=== PATIENT | male | born 1950 | race Caucasian/White ===

== ENCOUNTER 2020-11-07 06:43 | Day surgery (SDC) | payer MEDICARE, OTHER ==
[~2020-11-07 06:43] MED LIST: Famotidine 20 MG/2 ML SDV IVPUSH SCH; Ropivacaine 49.25 ML, Ketorolac 30 MG, EPINEPHrine 0.5 MG, cloNIDine 80 MCG in Sodium C... INJECT SCH; Scopolamine 1.5 MG Transdermal Patch TRDERM SCH
[2020-11-07] MEDS: Lactated Ringers 1,000 ML IV SCH ×2 (07:20→16:44)
[2020-11-07] MEDS ORDERED: Ondansetron 4 MG/2 ML SDV ONE (07:23)
[2020-11-07] MEDS ORDERED: Propofol 200 MG/20 ML SDV ONE ×3 (07:23→13:44)
[2020-11-07] MEDS ORDERED: Midazolam 1 MG/ML 2 ML SDV ONE (07:24)
[2020-11-07] MEDS ORDERED: fentaNYL 100 MCG/2 ML SDV ONE (07:24)
--- NOTE | 2020-11-07 07:36 | PCM.PREANE ---
Preanesthetic Assessment - Anesthesia/Transfusion/Family Hx Anesthesia History: Prior Anesthesia Without Reaction Other Type of Anesthesia Reaction Comment: Denies any known problem in past Family History of Anesthesia Reaction: No Transfusion History: No Prior Transfusion(s) - Review of Systems General: No Symptoms Pulmonary: No Symptoms Cardiovascular: No Symptoms Gastrointestinal: No Symptoms Neurological: No Symptoms Other: Reports: None - Physical Assessment NPO Status Date: 11/06/20 Height: 5 ft 10 in Weight: 95.254 kg ASA Class: 2 Mental Status: Alert & Oriented x3 Airway Class: Mallampati = 2 Dentition: Reports: Normal Dentition ROM/Head Extension: Full Lungs: Clear to Auscultation, Normal Respiratory Effort Cardiovascular: Regular Rate, Regular Rhythm - Lab Values: Laboratory Last Values POC Glucose 137 mg/dL (60-110) H 11/07/20 07:24 - Allergies Allergies/Adverse Reactions: Allergies Allergy/AdvReac Type Severity Reaction Status Date / Time cephalexin monohydrate Allergy Rash Verified 11/01/20 07:40 [From Keflex] - Blood Blood Available: No - Anesthesia Plan Pre-Op Medication Ordered: None - Acknowledgements Anesthesia Type Planned: Spinal Pt an Appropriate Candidate for the Planned Anesthesia: Yes Alternatives and Risks of Anesthesia Discussed w Pt/Guardian: Yes Pt/Guardian Understands and Agrees with Anesthesia Plan: Yes Additional Comments: PMH: glaucoma, RA- off prednisone x 2 years, htn- on lisinipril, DM2 on metformin- am [id number] PLAN: spinal with iv sedation PreAnesthesia Questionnaire HEENT History: Reports: Glaucoma Other HEENT History: wears glasses Cardiovascular History: Reports: High Cholesterol, Hypertension Respiratory History: Reports: None Gastrointestinal History: Reports: Hemorrhoids Genitourinary History: Reports: None Musculoskeletal History: Reports: RA Neurological History: Reports: None Psychiatric History: Reports: None Endocrine/Metabolic History: Reports: Diabetes, Type II, Obesity/BMI 30+ Hematologic History: Reports: None Immunologic History: Reports: None Oncologic (Cancer) History: Reports: Basal Cell Carcinoma Other Oncologic History: Areas frozen off with nitrogen Dermatologic History: Reports: None - Infectious Disease History Infectious Disease History: Reports: None - Past Surgical History Head Surgeries/Procedures: Reports: None HEENT Surgical History: Reports: None Cardiovascular Surgical History: Reports: None Respiratory Surgical History: Reports: None GI Surgical History: Reports: Colonoscopy, Other (See Below) Other GI Surgeries/Procedures: Hemorrhoidectomy Male Surgical History: Reports: None Endocrine Surgical History: Reports: None Neurological Surgical History: Reports: None Musculoskeletal Surgical History: Reports: Carpal Tunnel Other Musculoskeletal Surgeries/Procedures:: hx kenny CTR Dermatological Surgical History: Reports: None - SUBSTANCE USE Tobacco Use Status *Q: Never Tobacco User Recreational Drug Use History: No - HOME MEDS Home Medications: Home Meds Fish Oil/[place]-3 Fatty Acids [Fish Oil 1,000 MG] 1,000 mg PO BID 12/30/15 [History] Lisinopril 20 tab PO DAILY 12/30/15 [History] atorvaSTATin Calcium [Atorvastatin Calcium] 20 mg PO DAILY 12/30/15 [History] metFORMIN [Glucophage XR] 500 mg PO BEDTIME 12/30/15 [History] Acetaminophen [Tylenol Arthritis] 1 tab PO ASDIRECTED PRN 11/01/20 [History] Brimonidine Tartrate [Brimonidine Tartrate 0.2% Ophth Soln] 1 drop EYELF BID 11/01/20 [History] Ca/D3/Mag Ox/Zinc/Paper Core Machine Operator/Rohan/Bor [Calcium 600-D3 Plus Caplet] 1 tab PO DAILY 11/01/20 [History] Ibuprofen 1 tab PO ASDIRECTED PRN 11/01/20 [History] Latanoprost/Pf [Latanoprost 0.005% Eye Drop] 1 drop EYEBOTH BEDTIME 11/01/20 [History] Multivitamin 1 tab PO DAILY 11/01/20 [History] Naproxen Sodium 1 tab PO ASDIRECTED PRN 11/01/20 [History] Sildenafil [Viagra] 1 tab PO ASDIRECTED PRN 11/01/20 [History] timoloL maleate [Timoptic 0.5% Ophth Soln] 1 drop EYELF DAILY 11/01/20 [History] - CURRENT (IN HOUSE) MEDS Current Meds: Current Medications Famotidine (Pepcid) 40 mg IVPUSH ONARRIVE NONA Tranexamic Acid 1,000 mg/ (Sodium Chloride) 110 mls @ 600 mls/hr IV ASDIRECTED ONE Stop: 11/07/20 08:10 Ropivacaine 49.25 ml/Ketorolac Tromethamine 30 mg/Epinephrine HCl 0.5 mg/Clonidine HCl 80 mcg/ Sodium Chloride 75 mls @ 50 mls/sec INJECT ASDIRECTED NONA Cefazolin Sodium/Dextrose 2 gm (/ Premix) 50 mls @ 100 mls/hr IV ONCALL NONA Lactated Ringer's (Ringers, Lactated) 1,000 mls @ 100 mls/hr IV ASDIRECTED NONA Scopolamine (Transderm-Scop) 1.5 mg TRDERM ONARRIVE NONA Discontinued Medications Fentanyl (Sublimaze) Confirm Administered Dose 100 mcg .ROUTE .STK-MED ONE Stop: 11/07/20 07:25 Lidocaine HCl (Xylocaine-Mpf 1%) Confirm Administered Dose 5 ml .ROUTE .STK-MED ONE Stop: 11/07/20 07:25 Midazolam HCl (Versed 1 Mg/Ml) Confirm Administered Dose 2 mg .ROUTE .STK-MED ONE Stop: 11/07/20 07:25 Ondansetron HCl (Zofran) Confirm Administered Dose 4 mg .ROUTE .STK-MED ONE Stop: 11/07/20 07:24 Propofol (Diprivan 20 Ml) Confirm Administered Dose 600 mg .ROUTE .STK-MED ONE Stop: 11/07/20 07:24
[2020-11-07] MEDS ORDERED: ceFAZolin 2 GM in Premix Bag 1 BAG IV SCH (08:00)
[2020-11-07] MEDS ORDERED: Tranexamic Acid 1,000 MG in Sodium Chloride 0.9% 100 ML IV ONE (08:00)
[2020-11-07] MEDS ORDERED: ePHEDrine 50 MG/ML SDV ONE (08:56)
--- NOTE | 2020-11-07 10:50 | PCM.OPNOTE ---
- General Post-Op/Procedure Note Date of Surgery/Procedure: 11/07/20 Operative Procedure(s): Left total knee replacement using [employer] Legion knee system Findings: Left knee grade 4 medial compartment arthritis on both femur and tibia, grade 4 changes in the lateral facet of the patella grade 3 changes of the trochlear groove Grade 1 changes lateral compartment femoral and tibial articular cartilage Pre Op Diagnosis: Left knee grade 4 medial compartment osteoarthritis Post-Op Diagnosis: Left knee grade 4 medial compartment osteoarthritis Anesthesia Technique: Spinal Primary Surgeon: Shon Brownlee Director Of Safety: Cheryl Conley Director Of Safety Was Necessary: Positioning and retraction. Pathology: Bone cuts to pathology for review. EBL in mLs: 10 Complications: None Free Text/Narrative:: Patient is a 70-year-old male with grade 4 left knee medial compartment arthritis. Patient is no longer able to manage his pain and symptoms nonoperatively. We discussed the risks and benefits of surgery. All questions were answered. Patient consented to proceed with surgery. Patient was medically cleared for surgery. Patient was taken to the operating room. After adequate spinal anesthesia, he was placed in a supine position. A tourniquet was placed around the left proximal thigh. The left lower extremity was prepped and draped in usual sterile manner. The leg was elevated and the tourniquet inflated. A longitudinal incision was made centered over the patella. Skin was incised with a scalpel. Subcutaneous tissue was incised letter cautery. Quadriceps tendon split and medial arthrotomy was performed and the patella everted. Soft tissues were excised electrocautery. The distal femoral cut was made with a intramedullary cutting guide. The femur was sized to size 6 and then a constrained cutting guide was used to make the additional cuts. Osteophytes were removed. The trial component fit well. Lug holes were punched. Tibia was cut with an intramedullary cutting guide. The tibial component was sized to a size 6. Trial components showed good stability in flexion extension with a 9 mm insert. Patella was cut with a freehand technique. The patella was sized with 32 mm component which should fit well. The patella tracked well. Trial components were removed. The components were then cemented sequentially for cementing a Shirley [employer] Nephew #6 tibial component with antibiotic cement. Excess cement was removed. The polyethylene was inserted, 9 mm. Femoral cruciate retaining component was then cemented this was a size 6. Excess cement was removed and the knee was brought into extension until the cement hardened. The tibial component was cemented into place and this was a size 32. Excess cement was removed. Once the cement was hardened the knee was reinspected. No excess cement required removal. Periarticular injections were completed while the cement was hardening. The knee and wounds were pulse lavage. The arthrotomy and quadriceps tendon split were repaired with interrupted #1 Vicryl suture. Subcutaneous tissue was closed with interrupted 2-0 Vicryl suture. Skin was closed with a running 3-0 Monocryl suture. Steri-Strips and a sterile dressing were applied and patient was accompanied the cover in stable condition. Pain management: Ibuprofen, acetaminophen, tramadol. Venous thromboembolism prophylaxis: Patient will take aspirin 325 mg enteric- coated tablet once a day for 90 days because he has no personal or family history of venous thromboembolic events. Prophylactic antibiotics for 24 hours. Restrictions: Patient is weightbearing as left lower extremities with walker assistive device as needed. He has full range of motion no restrictions.
[2020-11-07] MEDS ORDERED: traMADol 50 MG Tab PO PRN (10:59)
[2020-11-07] MEDS ORDERED: Sodium Chloride 0.9% 10 ML Syringe FLUSH PRN (10:59)
[2020-11-07] MEDS ORDERED: Bisacodyl 10 MG Supp RECTAL PRN (10:59)
[2020-11-07] MEDS ORDERED: Sodium Chloride 0.9% 2.5 ML Syringe FLUSH PRN (10:59)
[2020-11-07] MEDS ORDERED: diphenhydrAMINE 25 MG Cap PO PRN (10:59)
[2020-11-07] MEDS ORDERED: Ondansetron 4 MG/2 ML SDV IVPUSH PRN (10:59)
[2020-11-07] MEDS ORDERED: Aluminum Hydroxide/Magnesium Hydroxide/Simethicone Susp 30 ML Cup PO PRN (10:59)
[2020-11-07] MEDS ORDERED: Docusate Sodium 100 MG Cap PO PRN (10:59)
[2020-11-07] MEDS ORDERED: Morphine 2 MG/ML SYRINGE IVPUSH PRN (10:59)
--- NOTE | 2020-11-07 11:33 | PCM.POSTAN ---
POST ANESTHESIA ASSESSMENT - MENTAL STATUS Mental Status: Alert, Oriented - VITAL SIGNS Vital Signs: Last Vital Signs Temp 96.9 F 11/07/20 10:29 Pulse 59 L 11/07/20 11:11 Resp 10 L 11/07/20 11:11 BP 123/76 11/07/20 11:11 Pulse Ox 96 11/07/20 11:11 - RESPIRATORY Respiratory Status: Respiratory Rate WNL, Airway Patent, O2 Saturation Stable - CARDIOVASCULAR CV Status: Pulse Rate WNL, Blood Pressure Stable - GASTROINTESTINAL GI Status: No Symptoms - POST OP HYDRATION Hydration Status: Adequate & Stable
[2020-11-07] MEDS: Ketorolac 15 MG/ML SDV IVPUSH SCH ×3 (11:39→22:25)
--- NOTE | 2020-11-07 12:19 | CR ---
Indication: Left total knee arthroplasty. Technique: Left knee 2 views. Comparison: Left knee radiograph 05/24/2020. Findings: Interval postoperative changes left total knee arthroplasty with patellar resurfacing. Hardware appears intact and well seated. No acute fracture. Expected postoperative soft tissue swelling and gas about the knee. Impression: Intact left TKA with expected immediate postoperative findings. Dictated by Neha Kapoor MD @ Nov 07 2020 12:15PM Signed by Dr. Neha Kapoor @ Nov 07 2020 12:17PM
[2020-11-07] MEDS ORDERED: 50% Dextrose in Water 50 ML Syringe IV PRN (12:44)
[2020-11-07] MEDS ORDERED: Glucagon,Human Recombinant 1 MG Vial IM PRN (12:44)
--- NOTE | 2020-11-07 12:59 | PCM.CONS ---
H&P History of Present Illness - General Date of Service: 11/07/20 Admit Problem/Dx: Admission Diagnosis/Problem Admission Diagnosis/Problem Knee pain Source of Information: Patient History Limitations: Reports: No Limitations - History of Present Illness Initial Comments - Free Text/Narative: This 70-year-old male with past medical history of hypertension, glaucoma, type 2 diabetes, and RA currently off prednisone presented for left TKA today with Dr. Brownlee. Hospitalist service consulted for medical management of comorbidities. Robby recently arrived to [facility] unit from PACU. He is alert oriented reports he is feeling well. Denies any chest pain shortness of breath no palpitations no abdominal pain. Has some mild discomfort to his left knee reports he has feeli ng in his foot and is able to move this well. Denies any concerns. Reports that he has been compliant with medications at home. Metformin takes nightly for prediabetes, last A1c 6.6. Reports that he has maintained well controlled blood pressure. Denies any history of CAD, [place], CVA. Left Knee Pain Score (Numeric/FACES): 0 - Related Data Allergies/Adverse Reactions: Allergies Allergy/AdvReac Type Severity Reaction Status Date / Time cephalexin monohydrate Allergy Rash Verified 11/01/20 07:40 [From Keflex] Home Medications: Home Meds Fish Oil/[place]-3 Fatty Acids [Fish Oil 1,000 MG] 1,000 mg PO BID 12/30/15 [History] Lisinopril 20 tab PO DAILY 12/30/15 [History] atorvaSTATin Calcium [Atorvastatin Calcium] 20 mg PO DAILY 12/30/15 [History] metFORMIN [Glucophage XR] 500 mg PO BEDTIME 12/30/15 [History] Acetaminophen [Tylenol Arthritis] 1 tab PO ASDIRECTED PRN 11/01/20 [History] Brimonidine Tartrate [Brimonidine Tartrate 0.2% Ophth Soln] 1 drop EYELF BID 11/01/20 [History] Ca/D3/Mag Ox/Zinc/Preschool Adviser/Rohan/Bor [Calcium 600-D3 Plus Caplet] 1 tab PO DAILY 11/01/20 [History] Ibuprofen 1 tab PO ASDIRECTED PRN 11/01/20 [History] Latanoprost/Pf [Latanoprost 0.005% Eye Drop] 1 drop EYEBOTH BEDTIME 11/01/20 [History] Multivitamin 1 tab PO DAILY 11/01/20 [History] Naproxen Sodium 1 tab PO ASDIRECTED PRN 11/01/20 [History] Sildenafil [Viagra] 1 tab PO ASDIRECTED PRN 11/01/20 [History] timoloL maleate [Timoptic 0.5% Ophth Soln] 1 drop EYELF DAILY 11/01/20 [History] Past Medical History HEENT History: Reports: Glaucoma Other HEENT History: wears glasses Cardiovascular History: Reports: High Cholesterol, Hypertension Respiratory History: Reports: None Gastrointestinal History: Reports: Hemorrhoids Genitourinary History: Reports: None Musculoskeletal History: Reports: RA Neurological History: Reports: None Psychiatric History: Reports: None Endocrine/Metabolic History: Reports: Diabetes, Type II, Obesity/BMI 30+ Hematologic History: Reports: None Immunologic History: Reports: None Oncologic (Cancer) History: Reports: Basal Cell Carcinoma Other Oncologic History: Areas frozen off with nitrogen Dermatologic History: Reports: None - Infectious Disease History Infectious Disease History: Reports: None - Past Surgical History Head Surgeries/Procedures: Reports: None HEENT Surgical History: Reports: None Cardiovascular Surgical History: Reports: None Respiratory Surgical History: Reports: None GI Surgical History: Reports: Colonoscopy, Other (See Below) Other GI Surgeries/Procedures: Hemorrhoidectomy Male Surgical History: Reports: None Endocrine Surgical History: Reports: None Neurological Surgical History: Reports: None Musculoskeletal Surgical History: Reports: Carpal Tunnel Other Musculoskeletal Surgeries/Procedures:: hx kenny CTR Dermatological Surgical History: Reports: None Social & Family History - Tobacco Use Tobacco Use Status *Q: Never Tobacco User - Alcohol Use Alcohol Use History: No - Recreational Drug Use Recreational Drug Use: No Drug Use in Last 12 Months: No - Living Situation & Occupation Living situation: Reports: Occupation: Retired H&P Review of Systems - Review of Systems: Review Of Systems: See Below General: Reports: No Symptoms. Denies: Fever, Chills, Malaise, Weakness HEENT: Reports: No Symptoms. Denies: Headaches, Sinus Congestion, Sore Throat, Vertigo Pulmonary: Reports: No Symptoms. Denies: Shortness of Breath Cardiovascular: Reports: No Symptoms. Denies: Chest Pain Gastrointestinal: Reports: No Symptoms. Denies: Abdominal Pain, Nausea, Vo miting Genitourinary: Reports: No Symptoms. Denies: Dysuria, Frequency Skin: Reports: No Symptoms Neurological: Reports: No Symptoms Hematologic/Lymphatic: Reports: No Symptoms Immunologic: Reports: No Symptoms Exam - Exam Exam: See Below - Vital Signs Vital Signs: Last Vital Signs Temp 96.9 F 11/07/20 10:29 Pulse 59 L 11/07/20 11:11 Resp 10 L 11/07/20 11:11 BP 123/76 11/07/20 11:11 Pulse Ox 96 11/07/20 11:11 Weight: 95.254 kg - Exam Quality Assessment: DVT Prophylaxis. No: Supplemental Oxygen General: Alert, Oriented, Cooperative HEENT: Conjunctiva Clear, Mucosa Moist & Pine, Posterior Pharynx Clear Lungs: Clear to Auscultation, Normal Respiratory Effort Cardiovascular: Regular Rate, Regular Rhythm, Normal S1, Normal S2. No: Irregular Rhythm, Systolic Murmur GI/Abdominal Exam: Normal Bowel Sounds, Soft, Non-Tender Extremities: Normal Inspection, Normal Range of Motion, Non-Tender, No Pedal Edema, Other (Uri wrap noted to left leg with polar ice.) Skin: Incision (Dressing covered with Uri wrap to left knee) Neuro Extensive - Mental Status: Alert, Oriented x3 Neuro Extensive - Motor, Sensory, Reflexes: CN II-XII Intact, Normal Gait Psychiatric: Alert, Normal Affect, Normal Mood - Patient Data Lab Results Last 24 hrs: Laboratory Results - last 24 hr 11/07/20 11/07/20 11/07/20 Range/Units 07:23 07:24 10:53 POC Glucose 137 H 138 H (60-110) mg/dL Blood Type O NEGATIVE Antibody Screen NEGATIVE Sepsis Event Note - Evaluation Sepsis Screening Result: No Definite Risk - Focused Exam Vital Signs: Vital Signs Temp Pulse Resp BP Pulse Ox 11/07/20 11:11 59 L 10 L 123/76 96 11/07/20 11:06 57 L 16 120/69 96 11/07/20 11:01 64 9 L 96/59 L 95 11/07/20 10:56 61 13 117/75 96 11/07/20 10:50 61 14 121/73 97 11/07/20 10:45 65 14 112/63 95 11/07/20 10:40 71 11 L 103/63 97 11/07/20 10:35 67 11 L 92/52 L 97 12/07/20 10:29 96.9 F 68 17 114/65 95 11/07/20 07:36 97.2 F 66 15 140/88 97 Consult PN Assessment/Plan POD#: 0 Procedures: Procedures EXC FACE-MM B9+REGI 1.1-2 CM (10/15/16) GLUCOSE BLOOD TEST (01/02/16) OFFICE/OUTPATIENT VISIT EST (12/27/15) OFFICE/OUTPATIENT VISIT NEW (10/15/16) RPR UMBIL LEONELA BLOCK > 5 YR (01/02/16) TISSUE EXAM BY PATHOLOGIST (10/15/16) (1) S/P total knee arthroplasty SNOMED Code(s): 9161217649731, 634119153, 2058997190320 Code(s): Z96.659 - PRESENCE OF UNSPECIFIED ARTIFICIAL KNEE JOINT Current Visit: Yes Qualifiers: Laterality: left Qualified Code(s): Z96.652 - Presence of left artificial knee joint (2) Hypertension SNOMED Code(s): 01098447 Code(s): I10 - ESSENTIAL (PRIMARY) HYPERTENSION Current Visit: Yes (3) DM type 2 (diabetes mellitus, type 2) SNOMED Code(s): 51124468 Code(s): E11.9 - TYPE 2 DIABETES MELLITUS WITHOUT COMPLICATIONS Current Visit: Yes (4) Rheumatoid arthritis SNOMED Code(s): 29139918 Code(s): M06.9 - RHEUMATOID ARTHRITIS, UNSPECIFIED Current Visit: Yes (5) Glaucoma SNOMED Code(s): 97441729 Code(s): H40.9 - UNSPECIFIED GLAUCOMA Current Visit: Yes Problem List Initiated/Reviewed/Updated: Yes My Orders Last 24 Hours: My Active Orders 11/07/20 12:36 BASIC METABOLIC PANEL,BMP [CHEM] Routine CBC WITH AUTO DIFF [HEME] Routine MG [MAGNESIUM] [CHEM] Routine 11/07/20 12:44 Blood Glucose Check, Bedside [RC] TIDAC Dextrose 50% in Water 50 ml IV ASDIRECTED PRN Glucagon,Human Recombinant [GlucaGen] 1 mg IM ASDIRECTED PRN 11/07/20 17:00 Insulin Aspart [NovoLOG] See Protocol SUBCUT TIDAC 11/07/20 21:00 Latanoprost/Pf [Latanoprost 0.005% Eye Drop] 1 drop EYEBOTH BEDTIME 11/08/20 09:00 atorvaSTATin [Lipitor] 20 mg PO DAILY lisinopriL [Prinivil] 20 mg PO DAILY timoloL maleate [Timoptic 0.5% Ophth Soln] 1 drop EYELF DAILY Plan: This 70-year-old male admitted for left TKA, hospitalist service consulted for medical management of hypertension diabetes 1. Left TKA -Orders per orthopedic service -ASA for VTE prophylaxis 2. DM type II -Hold Metformin while hospitalized, may restart as normal once discharged -NovoLog sliding scale -Check blood sugars 3 times daily AC 3. Hypertension -Stable -Continue lisinopril VTE prophylaxis: ASA and SCDs along with early ambulation CODE STATUS: Full code
[2020-11-07] MEDS ORDERED: Bupivacaine 25%/EPINEPHrine/PF 30 ML ONE (13:37)
[2020-11-07] MEDS ORDERED: Lidocaine 2% 5 ML SDV ONE (13:38)
[2020-11-07] MEDS ORDERED: Lidocaine 2% 100 MG/5 ML Syringe ONE (13:38)
[2020-11-07 13:47] LABS: BLOOD UREA NITROGEN,BUN 17 mg/dL (7.0-18.0); CHLORIDE,CL 107 mmol/L (98-107); GLUCOSE RANDOM 127 mg/dL (74-106); POTASSIUM,K 4.6 mmol/L (3.5-5.1); SODIUM,NA 139 mmol/L (136-148)
--- NOTE | 2020-11-07 15:09 | PCM.SN.2 ---
- Free Text/Narrative Note: 1355 Dr. Brownlee requested Left adductor canal block post op for pain. Pt consented and verbalized understanding. Block done with all standard monitors on. Pt's left leg prepped with cloro prep. Ultrasound probe with cover. Bupivicaine 0.25% with epi 20 ml Lidocaine 2% 10 ml injected into Left adductor canal. Negative parasthesia, negative signs of toxicity. stimuplex 20 g 4 inch needle used.
[2020-11-07] MEDS: ceFAZolin 2 GM in Premix Bag 1 BAG IV SCH ×2 (16:45→23:31)
[2020-11-07] MEDS: Insulin Aspart 100 Units/ML 3 ML Pen SUBCUT SCH (17:46)
[2020-11-07] MEDS: Aspirin 325 MG Tab PO SCH (18:48)
[2020-11-07] MEDS ORDERED: Latanoprost 0.005% Ophth Soln 2.5 ML Bottle EYEBOTH SCH (21:00)
[2020-11-08] MEDS: Lactated Ringers 1,000 ML IV SCH (04:04)
[2020-11-08] MEDS: Ketorolac 15 MG/ML SDV IVPUSH SCH (04:15)
--- NOTE | 2020-11-08 07:27 | PCM48HPAN ---
Post Anesthesia Note - EVALUATION WITHIN 48HRS OF ANESTHETIC Vital Signs in Normal Range: Yes Patient Participated in Evaluation: Yes Respiratory Function Stable: Yes Airway Patent: Yes Cardiovascular Function Stable: Yes Hydration Status Stable: Yes Pain Control Satisfactory: Yes Nausea and Vomiting Control Satisfactory: Yes Mental Status Recovered: Yes Vital Signs: Last Vital Signs Temp 37.0 C 11/08/20 04:08 Pulse 88 11/08/20 04:08 Resp 18 11/08/20 04:08 BP 117/65 11/08/20 04:08 Pulse Ox 95 11/08/20 04:08
[2020-11-08] MEDS ORDERED: Ibuprofen 800 MG Tab PO PRN (07:50)
[2020-11-08] MEDS ORDERED: Acetaminophen 500 MG Tab PO PRN (07:51)
[2020-11-08 08:03] VITALS: BP 113/59; PULSE 73
[2020-11-08] MEDS: Insulin Aspart 100 Units/ML 3 ML Pen SUBCUT SCH ×2 (08:25→11:41)
[2020-11-08 08:33] LABS: BLOOD UREA NITROGEN,BUN 20 mg/dL (7.0-18.0); CARBON DIOXIDE,CO2 25.5 mmol/L (21.0-32.0); CHLORIDE,CL 101 mmol/L (98-107); GLUCOSE RANDOM 148 mg/dL (74-106); POTASSIUM,K 4.6 mmol/L (3.5-5.1); SODIUM,NA 134 mmol/L (136-148)
[2020-11-08] MEDS: Aspirin 325 MG Tab PO SCH (08:50)
--- NOTE | 2020-11-08 08:57 | PCM.SURGPN ---
- General Info Date of Service: 11/08/20 (829) Date of Surgery/Procedure: 11/07/20 (Left TKA) POD#: 1 Admission Diagnosis/Problem: Knee pain Functional Status: Reports: Pain Controlled, Tolerating Diet (ate meals yesterday and had breakfast this morning. No c/o N/V), Ambulating (had been up yesterday after surgery with PT and walked in the hallway.), Urinating - Review of Systems General: Reports: Other (Robby's only c/o is that his knee feels stiff today compared to yesterday). Denies: Fever Pulmonary: Denies: Shortness of Breath Cardiovascular: Denies: Chest Pain Gastrointestinal: Denies: Nausea, Vomiting Neurological: Reports: No Symptoms Psychiatric: Reports: No Symptoms - Patient Data Vitals - Most Recent: Last Vital Signs Temp 36.4 C 11/08/20 07:20 Pulse 73 11/08/20 07:20 Resp 18 11/08/20 07:20 BP 113/59 L 11/08/20 07:20 Pulse Ox 94 L 11/08/20 07:20 Weight - Most Recent: 95.254 kg I&O - Last 24 Hours: Intake & Output 11/07/20 11/08/20 11/08/20 22:59 06:59 14:59 Intake Total 300 2300 Output Total 250 425 Balance 50 1875 Lab Results Last 24 Hrs: Laboratory Results - last 24 hr 11/07/20 11/07/20 11/07/20 Range/Units 10:53 13:00 13:00 WBC 5.76 (4.0-11.0) K/uL RBC 4.35 L (4.50-5.90) M/uL Hgb 13.5 (13.0-17.0) g/dL Hct 41.4 (38.0-50.0) % MCV 95.2 (80.0-98.0) fL MCH 31.0 (27.0-32.0) pg MCHC 32.6 (31.0-37.0) g/dL RDW Std Deviation 47.0 (28.0-62.0) fl RDW Coeff of Taylor 13 (11.0-15.0) % Plt Count 136 L (150-400) K/uL MPV 10.30 (7.40-12.00) fL Neut % (Auto) 65.3 (48.0-80.0) % Lymph % (Auto) 25.5 (16.0-40.0) % [place] % (Auto) 7.5 (0.0-15.0) % Eos % (Auto) 1.4 (0.0-7.0) % Baso % (Auto) 0.3 (0.0-1.5) % Neut # (Auto) 3.8 (1.4-5.7) K/uL Lymph # (Auto) 1.5 (0.6-2.4) K/uL [place] # (Auto) 0.4 (0.0-0.8) K/uL Eos # (Auto) 0.1 (0.0-0.7) K/uL Baso # (Auto) 0.0 (0.0-0.1) K/uL Nucleated RBC % 0.0 /100WBC Nucleated RBCs # 0 K/uL Sodium 139 (136-148) mmol/L Potassium 4.6 (3.5-5.1) mmol/L Chloride 107 (98-107) mmol/L Carbon Dioxide 25.0 (21.0-32.0) mmol/L BUN 17 (7.0-18.0) mg/dL Creatinine 1.0 (0.8-1.3) mg/dL Est Cr Clr Drug Dosing 68.94 mL/min Estimated GFR (MDRD) > 60.0 ml/min Glucose 127 H (74-106) mg/dL POC Glucose 138 H (60-110) mg/dL Calcium 8.7 (8.5-10.1) mg/dL Magnesium 1.9 (1.8-2.4) mg/dL 11/07/20 11/07/20 11/08/20 Range/Units 13:08 16:37 07:09 WBC (4.0-11.0) K/uL RBC (4.50-5.90) M/uL Hgb (13.0-17.0) g/dL Hct (38.0-50.0) % MCV (80.0-98.0) fL MCH (27.0-32.0) pg MCHC (31.0-37.0) g/dL RDW Std Deviation (28.0-62.0) fl RDW Coeff of Taylor (11.0-15.0) % Plt Count (150-400) K/uL MPV (7.40-12.00) fL Neut % (Auto) (48.0-80.0) % Lymph % (Auto) (16.0-40.0) % [place] % (Auto) (0.0-15.0) % Eos % (Auto) (0.0-7.0) % Baso % (Auto) (0.0-1.5) % Neut # (Auto) (1.4-5.7) K/uL Lymph # (Auto) (0.6-2.4) K/uL [place] # (Auto) (0.0-0.8) K/uL Eos # (Auto) (0.0-0.7) K/uL Baso # (Auto) (0.0-0.1) K/uL Nucleated RBC % /100WBC Nucleated RBCs # K/uL Sodium (136-148) mmol/L Potassium (3.5-5.1) mmol/L Chloride (98-107) mmol/L Carbon Dioxide (21.0-32.0) mmol/L BUN (7.0-18.0) mg/dL Creatinine (0.8-1.3) mg/dL Est Cr Clr Drug Dosing mL/min Estimated GFR (MDRD) ml/min Glucose (74-106) mg/dL POC Glucose 127 H 105 141 H (60-110) mg/dL Calcium (8.5-10.1) mg/dL Magnesium (1.8-2.4) mg/dL 11/08/20 11/08/20 Range/Units 07:20 07:20 WBC (4.0-11.0) K/uL RBC (4.50-5.90) M/uL Hgb 12.4 L (13.0-17.0) g/dL Hct 37.3 L (38.0-50.0) % MCV (80.0-98.0) fL MCH (27.0-32.0) pg MCHC (31.0-37.0) g/dL RDW Std Deviation (28.0-62.0) fl RDW Coeff of Taylor (11.0-15.0) % Plt Count (150-400) K/uL MPV (7.40-12.00) fL Neut % (Auto) (48.0-80.0) % Lymph % (Auto) (16.0-40.0) % [place] % (Auto) (0.0-15.0) % Eos % (Auto) (0.0-7.0) % Baso % (Auto) (0.0-1.5) % Neut # (Auto) (1.4-5.7) K/uL Lymph # (Auto) (0.6-2.4) K/uL [place] # (Auto) (0.0-0.8) K/uL Eos # (Auto) (0.0-0.7) K/uL Baso # (Auto) (0.0-0.1) K/uL Nucleated RBC % /100WBC Nucleated RBCs # K/uL Sodium 134 L (136-148) mmol/L Potassium 4.6 (3.5-5.1) mmol/L Chloride 101 (98-107) mmol/L Carbon Dioxide 25.5 (21.0-32.0) mmol/L BUN 20 H (7.0-18.0) mg/dL Creatinine 1.1 (0.8-1.3) mg/dL Est Cr Clr Drug Dosing 62.68 mL/min Estimated GFR (MDRD) > 60.0 ml/min Glucose 148 H (74-106) mg/dL POC Glucose (60-110) mg/dL Calcium 8.8 (8.5-10.1) mg/dL Magnesium 1.6 L (1.8-2.4) mg/dL Med Orders - Current: Current Medications Acetaminophen (Tylenol Extra Strength) 1,000 mg PO Q6H PRN PRN Reason: Pain Al Hydroxide/Mg Hydroxide (Mag-Al Plus) 30 ml PO Q4H PRN PRN Reason: Indigestion Aspirin (Aspirin) 325 mg PO DAILY [facility] Last Admin: 11/07/20 18:48 Dose: 325 mg Documented by: Atorvastatin Calcium (Lipitor) 20 mg PO DAILY [facility] Bisacodyl (Dulcolax) 10 mg RECTAL DAILY PRN PRN Reason: Constipation Dextrose/Water (Dextrose 50% In Water) 50 ml IV ASDIRECTED PRN PRN Reason: Hypoglycemia Diphenhydramine HCl (Benadryl) 25 - 50 mg PO Q6H PRN PRN Reason: Itching Docusate Sodium (Colace) 100 mg PO BID PRN PRN Reason: Constipation Last Admin: 11/07/20 11:39 Dose: 100 mg Documented by: Famotidine (Pepcid) 40 mg IVPUSH ONARRIVE [facility] Last Admin: 11/07/20 07:45 Dose: 40 mg Documented by: Famotidine (Pepcid) 40 mg PO DAILY [facility] Glucagon (Glucagen) 1 mg IM ASDIRECTED PRN PRN Reason: Hypoglycemia Ropivacaine 49.25 ml/Ketorolac Tromethamine 30 mg/Epinephrine HCl 0.5 mg/Clonidine HCl 80 mcg/ Sodium Chloride 75 mls @ 50 mls/sec INJECT ASDIRECTED [facility] Cefazolin Sodium/Dextrose 2 gm (/ Premix) 50 mls @ 100 mls/hr IV ONCALL [facility] Lactated Ringer's (Ringers, Lactated) 1,000 mls @ 100 mls/hr IV ASDIRECTED [facility] Last Admin: 11/08/20 04:04 Dose: 100 mls/hr Documented by: Ibuprofen (Motrin) 800 mg PO Q8H PRN PRN Reason: Pain Insulin Aspart (Novolog) 0 unit SUBCUT TIDAC [facility]; Protocol Last Admin: 11/08/20 08:25 Dose: Not Given Documented by: Latanoprost (Xalatan 0.005% Oph Soln) 0 ml EYEBOTH BEDTIME [facility] Last Admin: 11/07/20 20:39 Dose: Not Given Documented by: Lisinopril (Prinivil) 20 mg PO DAILY [facility] Morphine Sulfate (Morphine) 1 - 2 mg IVPUSH Q3H PRN PRN Reason: Pain Ondansetron HCl (Zofran) 4 mg IVPUSH Q6H PRN PRN Reason: Nausea/Vomiting Polyethylene Glycol (Miralax) 17 gm PO DAILY [facility] Scopolamine (Transderm-Scop) 1.5 mg TRDERM ONARRIVE [facility] Last Admin: 11/07/20 07:30 Dose: 1.5 mg Documented by: Sodium Chloride (Saline Flush) 10 ml FLUSH ASDIRECTED PRN PRN Reason: Keep Vein Open Sodium Chloride (Saline Flush) 2.5 ml FLUSH ASDIRECTED PRN PRN Reason: Keep Vein Open Timolol Maleate (Timoptic 0.5% Ophth Soln) 0 ml EYELF DAILY [facility] Tramadol HCl (Ultram) 50 - 100 mg PO Q6H PRN PRN Reason: Pain Discontinued Medications Aspirin (Aspirin) 325 mg PO DAILY [facility] Ephedrine Sulfate (Ephedrine Sulfate) Confirm Administered Dose 50 mg .ROUTE .STK-MED ONE Stop: 11/07/20 08:57 Fentanyl (Sublimaze) Confirm Administered Dose 100 mcg .ROUTE .STK-MED ONE Stop: 11/07/20 07:25 Tranexamic Acid 1,000 mg/ (Sodium Chloride) 110 mls @ 600 mls/hr IV ASDIRECTED ONE Stop: 11/07/20 08:10 Last Admin: 11/07/20 11:37 Dose: Not Given Documented by: Cefazolin Sodium/Dextrose 2 gm (/ Premix) 50 mls @ 100 mls/hr IV Q8H [facility] Stop: 11/08/20 00:29 Last Admin: 11/07/20 23:31 Dose: 100 mls/hr Documented by: Bupivacaine HCl/Epinephrine Bitart (Sensorc Mpf 0.25%-Epi [id number]) Confirm Administered Dose 30 mls @ as directed .ROUTE .STK-MED ONE Stop: 11/07/20 13:38 Ketorolac Tromethamine (Toradol) 15 mg IVPUSH Q6H [facility] Stop: 11/08/20 05:00 Last Admin: 11/08/20 04:15 Dose: 15 mg Documented by: Lidocaine (Xylocaine-Mpf 2%) Confirm Administered Dose 10 ml .ROUTE .STK-MED ONE Stop: 11/07/20 13:39 Lidocaine HCl (Xylocaine-Mpf 1%) Confirm Administered Dose 5 ml .ROUTE .STK-MED ONE Stop: 11/07/20 07:25 Lidocaine HCl (Xylocaine 2%) Confirm Administered Dose 100 mg .ROUTE .STK-MED ONE Stop: 11/07/20 13:39 Midazolam HCl (Versed 1 Mg/Ml) Confirm Administered Dose 2 mg .ROUTE .STK-MED ONE Stop: 11/07/20 07:25 Ondansetron HCl (Zofran) Confirm Administered Dose 4 mg .ROUTE .STK-MED ONE Stop: 11/07/20 07:24 Propofol (Diprivan 20 Ml) Confirm Administered Dose 400 mg .ROUTE .STK-MED ONE Stop: 11/07/20 07:24 Propofol (Diprivan 20 Ml) Confirm Administered Dose 400 mg .ROUTE .STK-MED ONE Stop: 11/07/20 09:44 Propofol (Diprivan 20 Ml) Confirm Administered Dose 200 mg .ROUTE .STK-MED ONE Stop: 11/07/20 13:45 Tranexamic Acid (Cyklokapron) Confirm Administered Dose 1,000 mg .ROUTE .STK-MED ONE Stop: 11/07/20 07:57 - Exam Wound/Incisions: Dressing Dry and Intact, No Drainage, Other (surgical dressings removed. Incision well approximated with steri-strips. Mild amount of soft tissue swelling.). No: Erythema Quality Assessment: DVT Prophylaxis (ASA initiated yesterday. Ambulation. SCDs on in bed. Compression stocking) General: Alert, Oriented, Cooperative, No Acute Distress Lungs: Normal Respiratory Effort Extremities: No Pedal Edema, Normal Capillary Refill (pp2+ Sensation intact to foot), Other (no erythema, swelling or pain to calf) Skin: Warm Neurological: Normal Speech, Normal Tone Psy/Mental Status: Alert, Normal Affect, Normal Mood Sepsis Event Note - Evaluation Sepsis Screening Result: No Definite Risk - Focused Exam Vital Signs: Vital Signs Temp Pulse Resp BP Pulse Ox 11/08/20 07:20 36.4 C 73 18 113/59 L 94 L 11/08/20 04:08 37.0 C 88 18 117/65 95 11/08/20 00:00 37.2 C 69 18 125/66 92 L - Problem List Review Problem List Initiated/Reviewed/Updated: Yes - My Orders Last 24 Hours: Active Orders 24 hr Category Date Time Status Blood Glucose Check, Bedside [RC] TIDAC Care 11/07/20 12:44 Active Communication Order [RC] PRN Care 11/07/20 10:59 Active Cooling Warming Measures [RC] ASDIRECTED Care 11/07/20 10:59 Active Neurovascular Check [RC] Q2HR Care 11/07/20 10:59 Active Notify Provider Consults [RC] ASDIRECTED Care 11/07/20 11:06 Active Notify Provider Vital Signs [RC] ASDIRECTED Care 11/07/20 10:59 Active RT Incentive Spirometry [RC] Q1HWA Care 11/07/20 10:59 Active Ready for Discharge [RC] PER UNIT ROUTINE Care 11/08/20 08:36 Active Vital Signs [RC] Q4H Care 11/07/20 10:59 Active Wound Care [RC] DAILY Care 11/07/20 10:59 Active Consult to Physician [CONS] Routine Cons 11/07/20 10:59 Active PT Evaluation and Treatment [CONS] Routine Cons 11/07/20 10:59 Active Regular Diet [DIET] Diet 11/07/20 Lunch Active HEMOGLOBIN/HEMATOCRIT,HH [HEME] DAILY Lab 11/09/20 06:00 Ordered Acetaminophen [Tylenol Extra Strength] Med 11/08/20 07:51 Active 1,000 mg PO Q6H PRN Alum Hydrox/Mag Hydrox/Simeth [Mag-Al Plus] Med 11/07/20 10:59 Active 30 ml PO Q4H PRN Aspirin Med 11/07/20 19:00 Active 325 mg PO DAILY Dextrose 50% in Water Med 11/07/20 12:44 Active 50 ml IV ASDIRECTED PRN Docusate Sodium [Colace] Med 11/07/20 10:59 Active 100 mg PO BID PRN Famotidine [Pepcid] Med 11/08/20 09:00 Active 40 mg PO DAILY Glucagon,Human Recombinant [GlucaGen] Med 11/07/20 12:44 Active 1 mg IM ASDIRECTED PRN Ibuprofen [Motrin] Med 11/08/20 07:50 Active 800 mg PO Q8H PRN Insulin Aspart [NovoLOG] Med 11/07/20 17:00 Active See Protocol SUBCUT TIDAC Latanoprost [Xalatan 0.005% Ophth Soln] Med 11/07/20 21:00 Active 0 ml EYEBOTH BEDTIME Morphine Med 11/07/20 10:59 Active 1 - 2 mg IVPUSH Q3H PRN Ondansetron [Zofran] Med 11/07/20 10:59 Active 4 mg IVPUSH Q6H PRN Sodium Chloride 0.9% [Saline Flush] Med 11/07/20 10:59 Active 10 ml FLUSH ASDIRECTED PRN Sodium Chloride 0.9% [Saline Flush] Med 11/07/20 10:59 Active 2.5 ml FLUSH ASDIRECTED PRN atorvaSTATin [Lipitor] Med 11/08/20 09:00 Active 20 mg PO DAILY bisacodyL [Dulcolax] Med 11/07/20 10:59 Active 10 mg RECTAL DAILY PRN ceFAZolin [Ancef] 2 gm Med 11/07/20 08:00 Active Premix Bag 1 bag IV ONCALL diphenhydrAMINE [Benadryl] Med 11/07/20 10:59 Active 25 - 50 mg PO Q6H PRN lisinopriL [Prinivil] Med 11/08/20 09:00 Active 20 mg PO DAILY polyethylene glycoL 3350 [MiraLAX] Med 11/08/20 09:00 Active 17 gm PO DAILY timoloL maleate [Timoptic 0.5% Ophth Soln] Med 11/08/20 09:00 Active 0 ml EYELF DAILY traMADol [Ultram] Med 11/07/20 10:59 Active 50 - 100 mg PO Q6H PRN Convert IV to Saline Lock [OM.PC] PRN Oth 11/07/20 11:00 Ordered Convert IV to Saline Lock [OM.PC] PRN Oth 11/08/20 11:00 Ordered Ice Therapy [OM.PC] Routine Oth 11/07/20 10:59 Ordered Sequential Compression Device [OM.PC] Routine Oth 11/07/20 08:00 Ordered Medication Orders Acetaminophen (Tylenol Extra Strength) 1,000 mg PO Q6H PRN PRN Reason: Pain Al Hydroxide/Mg Hydroxide (Mag-Al Plus) 30 ml PO Q4H PRN PRN Reason: Indigestion Aspirin (Aspirin) 325 mg PO DAILY [facility] Last Admin: 11/07/20 18:48 Dose: 325 mg Documented by: KAILEY Atorvastatin Calcium (Lipitor) 20 mg PO DAILY [facility] Bisacodyl (Dulcolax) 10 mg RECTAL DAILY PRN PRN Reason: Constipation Dextrose/Water (Dextrose 50% In Water) 50 ml IV ASDIRECTED PRN PRN Reason: Hypoglycemia Diphenhydramine HCl (Benadryl) 25 - 50 mg PO Q6H PRN PRN Reason: Itching Docusate Sodium (Colace) 100 mg PO BID PRN PRN Reason: Constipation Last Admin: 11/07/20 11:39 Dose: 100 mg Documented by: KAILEY Famotidine (Pepcid) 40 mg IVPUSH ONARRIVE [facility] Last Admin: 11/07/20 07:45 Dose: 40 mg Documented by: CAROLYN Famotidine (Pepcid) 40 mg PO DAILY [facility] Glucagon (Glucagen) 1 mg IM ASDIRECTED PRN PRN Reason: Hypoglycemia Ropivacaine 49.25 ml/Ketorolac Tromethamine 30 mg/Epinephrine HCl 0.5 mg/Clonidine HCl 80 mcg/ Sodium Chloride 75 mls @ 50 mls/sec INJECT ASDIRECTED [facility] Cefazolin Sodium/Dextrose 2 gm (/ Premix) 50 mls @ 100 mls/hr IV ONCALL [facility] Lactated Ringer's (Ringers, Lactated) 1,000 mls @ 100 mls/hr IV ASDIRECTED [facility] Last Admin: 11/08/20 04:04 Dose: 100 mls/hr Documented by: Infusion: 11/08/20 02:44 Dose: 100 mls/hr Documented by: Admin: 11/07/20 16:44 Dose: 100 mls/hr Documented by: Infusion: 11/07/20 16:44 Dose: 100 mls/hr Documented by: Admin: 11/07/20 07:20 Dose: 100 mls/hr Documented by: CAROLYN Ibuprofen (Motrin) 800 mg PO Q8H PRN PRN Reason: Pain Insulin Aspart (Novolog) 0 unit SUBCUT TIDAC [facility]; Protocol Last Admin: 11/08/20 08:25 Dose: Not Given Documented by: Admin: 11/07/20 17:46 Dose: Not Given Documented by: KAILEY Latanoprost (Xalatan 0.005% Ophth Soln) 0 ml EYEBOTH BEDTIME [facility] Last Admin: 11/07/20 20:39 Dose: Not Given Documented by: MARTIN Lisinopril (Prinivil) 20 mg PO DAILY [facility] Morphine Sulfate (Morphine) 1 - 2 mg IVPUSH Q3H PRN PRN Reason: Pain Ondansetron HCl (Zofran) 4 mg IVPUSH Q6H PRN PRN Reason: Nausea/Vomiting Polyethylene Glycol (Miralax) 17 gm PO DAILY [facility] Scopolamine (Transderm-Scop) 1.5 mg TRDERM ONARRIVE [facility] Last Admin: 11/07/20 07:30 Dose: 1.5 mg Documented by: BENTJUV Sodium Chloride (Saline Flush) 10 ml FLUSH ASDIRECTED PRN PRN Reason: Keep Vein Open Sodium Chloride (Saline Flush) 2.5 ml FLUSH ASDIRECTED PRN PRN Reason: Keep Vein Open Timolol Maleate (Timoptic 0.5% Ophth Soln) 0 ml EYELF DAILY [facility] Tramadol HCl (Ultram) 50 - 100 mg PO Q6H PRN PRN Reason: Pain - Assessment Assessment (Free Text/Narrative):: s/p Left TKA - Plan Plan (Free Text/Narrative):: Overall, Robby is doing well. Tolerating po food/fluids without N/V. Afebrile. Hg yesterday after surgery 13.5 DVT prophylaxis: ASA, SCDs, compression stockings and early ambulation. antibiotic prophylaxis with Ancef completed. He did well yesterday with PT, has been up in the chair for breakfast this morning. He feels ready for discharge home today. He will be seen by PT this morning to review steps. Pain is tolerable with Toradol. He will start Ibuprofen today and supplementing either Tylenol or Tramadol inbetween as needed. Robby had no further questions. Surgical dressings removed. Dry with no active drainage or erythema. AquaCell bandage applied. Diligent use of Polar Care ice. He has minimal swelling. Hospitalist services are consulting for medical management.
[2020-11-08] MEDS ORDERED: Polyethylene Glycol 3350 Powder 17 GM Packet PO SCH (09:00)
[2020-11-08] MEDS ORDERED: atorvaSTATin 20 MG Tab PO SCH (09:00)
[2020-11-08] MEDS ORDERED: Aspirin 325 MG Tab PO SCH (09:00)
[2020-11-08] MEDS ORDERED: Timolol Maleate 0.5% Ophth Soln 15 ML Bottle EYELF SCH (09:00)
[2020-11-08] MEDS ORDERED: Famotidine 20 MG Tab PO SCH (09:00)
[2020-11-08] MEDS ORDERED: Lisinopril 10 MG Tab PO SCH (09:00)
[2020-11-08] MEDS ORDERED: Magnesium Sulfate/Water 2 GM/50 ML BAG IV ONE (10:45)
--- NOTE | 2020-11-08 10:54 | PCM.CONSN ---
- General Info Date of Service: 11/08/20 Admission Dx/Problem (Free Text): Admission Diagnosis/Problem Admission Diagnosis/Problem Knee pain s/p LEFT TKA Subjective Update: Doing well today. Denies any chest pain shortness of breath or palpitation. No fevers or chills. Left knee pain is tolerable, has not used any medication overnight. Eager to be discharged home today Functional Status: Reports: Pain Controlled, Tolerating Diet, Ambulating, Urinating - Review of Systems General: Reports: No Symptoms. Denies: Fever, Fatigue Pulmonary: Reports: No Symptoms. Denies: Shortness of Breath Cardiovascular: Reports: No Symptoms. Denies: Chest Pain Gastrointestinal: Reports: No Symptoms. Denies: Abdominal Pain, Nausea, V omiting Genitourinary: Reports: No Symptoms. Denies: Dysuria, Frequency Musculoskeletal: Reports: Joint Pain (Left knee but tolerable) Skin: Reports: No Symptoms Neurological: Reports: No Symptoms Psychiatric: Reports: No Symptoms - Patient Data Vitals - Most Recent: Last Vital Signs Temp 97.6 F 11/08/20 07:20 Pulse 73 11/08/20 07:20 Resp 18 11/08/20 07:20 BP 113/59 L 11/08/20 08:50 Pulse Ox 94 L 11/08/20 07:20 Weight - Most Recent: 95.254 kg I&O - Last 24 Hours: Intake & Output 11/07/20 11/08/20 11/08/20 22:59 06:59 14:59 Intake Total 300 2300 Output Total 250 425 Balance 50 1875 Lab Results Last 24 Hours: Laboratory Results - last 24 hr 11/07/20 11/07/20 11/07/20 Range/Units 10:53 13:00 13:00 WBC 5.76 (4.0-11.0) K/uL RBC 4.35 L (4.50-5.90) M/uL Hgb 13.5 (13.0-17.0) g/dL Hct 41.4 (38.0-50.0) % MCV 95.2 (80.0-98.0) fL MCH 31.0 (27.0-32.0) pg MCHC 32.6 (31.0-37.0) g/dL RDW Std Deviation 47.0 (28.0-62.0) fl RDW Coeff of Taylor 13 (11.0-15.0) % Plt Count 136 L (150-400) K/uL MPV 10.30 (7.40-12.00) fL Neut % (Auto) 65.3 (48.0-80.0) % Lymph % (Auto) 25.5 (16.0-40.0) % Douglas % (Auto) 7.5 (0.0-15.0) % Eos % (Auto) 1.4 (0.0-7.0) % Baso % (Auto) 0.3 (0.0-1.5) % Neut # (Auto) 3.8 (1.4-5.7) K/uL Lymph # (Auto) 1.5 (0.6-2.4) K/uL Douglas # (Auto) 0.4 (0.0-0.8) K/uL Eos # (Auto) 0.1 (0.0-0.7) K/uL Baso # (Auto) 0.0 (0.0-0.1) K/uL Nucleated RBC % 0.0 /100WBC Nucleated RBCs # 0 K/uL Sodium 139 (136-148) mmol/L Potassium 4.6 (3.5-5.1) mmol/L Chloride 107 (98-107) mmol/L Carbon Dioxide 25.0 (21.0-32.0) mmol/L BUN 17 (7.0-18.0) mg/dL Creatinine 1.0 (0.8-1.3) mg/dL Est Cr Clr Drug Dosing 68.94 mL/min Estimated GFR (MDRD) > 60.0 ml/min Glucose 127 H (74-106) mg/dL POC Glucose 138 H (60-110) mg/dL Calcium 8.7 (8.5-10.1) mg/dL Magnesium 1.9 (1.8-2.4) mg/dL 11/07/20 11/07/20 11/08/20 Range/Units 13:08 16:37 07:09 WBC (4.0-11.0) K/uL RBC (4.50-5.90) M/uL Hgb (13.0-17.0) g/dL Hct (38.0-50.0) % MCV (80.0-98.0) fL MCH (27.0-32.0) pg MCHC (31.0-37.0) g/dL RDW Std Deviation (28.0-62.0) fl RDW Coeff of Taylor (11.0-15.0) % Plt Count (150-400) K/uL MPV (7.40-12.00) fL Neut % (Auto) (48.0-80.0) % Lymph % (Auto) (16.0-40.0) % Douglas % (Auto) (0.0-15.0) % Eos % (Auto) (0.0-7.0) % Baso % (Auto) (0.0-1.5) % Neut # (Auto) (1.4-5.7) K/uL Lymph # (Auto) (0.6-2.4) K/uL Douglas # (Auto) (0.0-0.8) K/uL Eos # (Auto) (0.0-0.7) K/uL Baso # (Auto) (0.0-0.1) K/uL Nucleated RBC % /100WBC Nucleated RBCs # K/uL Sodium (136-148) mmol/L Potassium (3.5-5.1) mmol/L Chloride (98-107) mmol/L Carbon Dioxide (21.0-32.0) mmol/L BUN (7.0-18.0) mg/dL Creatinine (0.8-1.3) mg/dL Est Cr Clr Drug Dosing mL/min Estimated GFR (MDRD) ml/min Glucose (74-106) mg/dL POC Glucose 127 H 105 141 H (60-110) mg/dL Calcium (8.5-10.1) mg/dL Magnesium (1.8-2.4) mg/dL 11/08/20 11/08/20 Range/Units 07:20 07:20 WBC (4.0-11.0) K/uL RBC (4.50-5.90) M/uL Hgb 12.4 L (13.0-17.0) g/dL Hct 37.3 L (38.0-50.0) % MCV (80.0-98.0) fL MCH (27.0-32.0) pg MCHC (31.0-37.0) g/dL RDW Std Deviation (28.0-62.0) fl RDW Coeff of Taylor (11.0-15.0) % Plt Count (150-400) K/uL MPV (7.40-12.00) fL Neut % (Auto) (48.0-80.0) % Lymph % (Auto) (16.0-40.0) % Douglas % (Auto) (0.0-15.0) % Eos % (Auto) (0.0-7.0) % Baso % (Auto) (0.0-1.5) % Neut # (Auto) (1.4-5.7) K/uL Lymph # (Auto) (0.6-2.4) K/uL Douglas # (Auto) (0.0-0.8) K/uL Eos # (Auto) (0.0-0.7) K/uL Baso # (Auto) (0.0-0.1) K/uL Nucleated RBC % /100WBC Nucleated RBCs # K/uL Sodium 134 L (136-148) mmol/L Potassium 4.6 (3.5-5.1) mmol/L Chloride 101 (98-107) mmol/L Carbon Dioxide 25.5 (21.0-32.0) mmol/L BUN 20 H (7.0-18.0) mg/dL Creatinine 1.1 (0.8-1.3) mg/dL Est Cr Clr Drug Dosing 62.68 mL/min Estimated GFR (MDRD) > 60.0 ml/min Glucose 148 H (74-106) mg/dL POC Glucose (60-110) mg/dL Calcium 8.8 (8.5-10.1) mg/dL Magnesium 1.6 L (1.8-2.4) mg/dL Med Orders - Current: Current Medications Acetaminophen (Tylenol Extra Strength) 1,000 mg PO Q6H PRN PRN Reason: Pain Al Hydroxide/Mg Hydroxide (Mag-Al Plus) 30 ml PO Q4H PRN PRN Reason: Indigestion Aspirin (Aspirin) 325 mg PO DAILY [facility] Last Admin: 11/08/20 08:50 Dose: 325 mg Documented by: Atorvastatin Calcium (Lipitor) 20 mg PO DAILY [facility] Last Admin: 12/08/20 08:50 Dose: 20 mg Documented by: Bisacodyl (Dulcolax) 10 mg RECTAL DAILY PRN PRN Reason: Constipation Dextrose/Water (Dextrose 50% In Water) 50 ml IV ASDIRECTED PRN PRN Reason: Hypoglycemia Diphenhydramine HCl (Benadryl) 25 - 50 mg PO Q6H PRN PRN Reason: Itching Docusate Sodium (Colace) 100 mg PO BID PRN PRN Reason: Constipation Last Admin: 11/07/20 11:39 Dose: 100 mg Documented by: Famotidine (Pepcid) 40 mg IVPUSH ONARRIVE [facility] Last Admin: 11/07/20 07:45 Dose: 40 mg Documented by: Famotidine (Pepcid) 40 mg PO DAILY [facility] Last Admin: 11/08/20 08:50 Dose: 40 mg Documented by: Glucagon (Glucagen) 1 mg IM ASDIRECTED PRN PRN Reason: Hypoglycemia Ropivacaine 49.25 ml/Ketorolac Tromethamine 30 mg/Epinephrine HCl 0.5 mg/Clonidine HCl 80 mcg/ Sodium Chloride 75 mls @ 50 mls/sec INJECT ASDIRECTED [facility] Cefazolin Sodium/Dextrose 2 gm (/ Premix) 50 mls @ 100 mls/hr IV ONCALL [facility] Lactated Ringer's (Ringers, Lactated) 1,000 mls @ 100 mls/hr IV ASDIRECTED [facility] Last Admin: 11/08/20 04:04 Dose: 100 mls/hr Documented by: Magnesium Sulfate (Magnesium Sulfate In Water Premix) 2 gm in 50 mls @ 50 mls/hr IV ONETIME ONE Stop: 11/08/20 11:44 Ibuprofen (Motrin) 800 mg PO Q8H PRN PRN Reason: Pain Insulin Aspart (Novolog) 0 unit SUBCUT TIDAC [facility]; Protocol Last Admin: 11/08/20 08:25 Dose: Not Given Documented by: Latanoprost (Xalatan 0.005% Ophth Soln) 0 ml EYEBOTH BEDTIME [facility] Last Admin: 11/07/20 20:39 Dose: Not Given Documented by: Lisinopril (Prinivil) 20 mg PO DAILY [facility] Last Admin: 11/08/20 08:50 Dose: 20 mg Documented by: Morphine Sulfate (Morphine) 1 - 2 mg IVPUSH Q3H PRN PRN Reason: Pain Ondansetron HCl (Zofran) 4 mg IVPUSH Q6H PRN PRN Reason: Nausea/Vomiting Polyethylene Glycol (Miralax) 17 gm PO DAILY [facility] Last Admin: 11/08/20 08:51 Dose: 17 gm Documented by: Scopolamine (Transderm-Scop) 1.5 mg TRDERM ONARRIVE [facility] Last Admin: 11/07/20 07:30 Dose: 1.5 mg Documented by: Sodium Chloride (Saline Flush) 10 ml FLUSH ASDIRECTED PRN PRN Reason: Keep Vein Open Sodium Chloride (Saline Flush) 2.5 ml FLUSH ASDIRECTED PRN PRN Reason: Keep Vein Open Timolol Maleate (Timoptic 0.5% Ophth Soln) 0 ml EYELF DAILY [facility] Last Admin: 11/08/20 08:53 Dose: 1 drop Documented by: Tramadol HCl (Ultram) 50 - 100 mg PO Q6H PRN PRN Reason: Pain Last Admin: 11/08/20 08:53 Dose: 50 mg Documented by: Discontinued Medications Aspirin (Aspirin) 325 mg PO DAILY [facility] Ephedrine Sulfate (Ephedrine Sulfate) Confirm Administered Dose 50 mg .ROUTE .STK-MED ONE Stop: 11/07/20 08:57 Fentanyl (Sublimaze) Confirm Administered Dose 100 mcg .ROUTE .STK-MED ONE Stop: 11/07/20 07:25 Tranexamic Acid 1,000 mg/ (Sodium Chloride) 110 mls @ 600 mls/hr IV ASDIRECTED ONE Stop: 11/07/20 08:10 Last Admin: 11/07/20 11:37 Dose: Not Given Documented by: Cefazolin Sodium/Dextrose 2 gm (/ Premix) 50 mls @ 100 mls/hr IV Q8H [facility] Stop: 11/08/20 00:29 Last Admin: 11/07/20 23:31 Dose: 100 mls/hr Documented by: Bupivacaine HCl/Epinephrine Bitart (Sensorc Mpf 0.25%-Epi [id number]) Confirm Administered Dose 30 mls @ as directed .ROUTE .STK-MED ONE Stop: 11/07/20 13:38 Ketorolac Tromethamine (Toradol) 15 mg IVPUSH Q6H [facility] Stop: 11/08/20 05:00 Last Admin: 11/08/20 04:15 Dose: 15 mg Documented by: Lidocaine (Xylocaine-Mpf 2%) Confirm Administered Dose 10 ml .ROUTE .STK-MED ONE Stop: 11/07/20 13:39 Lidocaine HCl (Xylocaine-Mpf 1%) Confirm Administered Dose 5 ml .ROUTE .STK-MED ONE Stop: 11/07/20 07:25 Lidocaine HCl (Xylocaine 2%) Confirm Administered Dose 100 mg .ROUTE .STK-MED ONE Stop: 11/07/20 13:39 Midazolam HCl (Versed 1 Mg/Ml) Confirm Administered Dose 2 mg .ROUTE .STK-MED ONE Stop: 11/07/20 07:25 Ondansetron HCl (Zofran) Confirm Administered Dose 4 mg .ROUTE .STK-MED ONE Stop: 11/07/20 07:24 Propofol (Diprivan 20 Ml) Confirm Administered Dose 400 mg .ROUTE .STK-MED ONE Stop: 11/07/20 07:24 Propofol (Diprivan 20 Ml) Confirm Administered Dose 400 mg .ROUTE .STK-MED ONE Stop: 11/07/20 09:44 Propofol (Diprivan 20 Ml) Confirm Administered Dose 200 mg .ROUTE .STK-MED ONE Stop: 11/07/20 13:45 Tranexamic Acid (Cyklokapron) Confirm Administered Dose 1,000 mg .ROUTE .STK-MED ONE Stop: 11/07/20 07:57 - Exam Quality Assessment: DVT Prophylaxis. No: Supplemental Oxygen General: Alert, Oriented, Cooperative, No Acute Distress Neck: Supple Lungs: Clear to Auscultation, Normal Respiratory Effort Cardiovascular: Regular Rate, Regular Rhythm GI/Abdominal Exam: Normal Bowel Sounds, Soft, Non-Tender Extremities: Normal Inspection, Normal Range of Motion, Non-Tender, No Pedal Edema Wound/Incisions: Dressing Dry and Intact (Left knee) Neurological: No New Focal Deficit Psy/Mental Status: Alert, Normal Affect, Normal Mood Sepsis Event Note - Evaluation Sepsis Screening Result: No Definite Risk - Focused Exam Vital Signs: Vital Signs Temp Pulse Resp BP BP Pulse Ox 11/08/20 08:50 113/59 L 11/08/20 07:20 97.6 F 73 18 113/59 L 94 L 11/08/20 04:08 98.6 F 88 18 117/65 95 11/08/20 00:00 98.9 F 69 18 125/66 92 L Consult PN Assessment/Plan POD#: 1 Procedures: Procedures EXC FACE-MM B9+REGI 1.1-2 CM (10/15/16) GLUCOSE BLOOD TEST (01/02/16) OFFICE/OUTPATIENT VISIT EST (12/27/15) OFFICE/OUTPATIENT VISIT NEW (10/15/16) RPR UMBIL LEONELA BLOCK > 5 YR (01/02/16) TISSUE EXAM BY PATHOLOGIST (10/15/16) (1) S/P total knee arthroplasty SNOMED Code(s): 2969617686328, 041114446, 1563956381279 Code(s): Z96.659 - PRESENCE OF UNSPECIFIED ARTIFICIAL KNEE JOINT Current Visit: Yes Qualifiers: Laterality: left Qualified Code(s): Z96.652 - Presence of left artificial knee joint (2) Hypertension SNOMED Code(s): 24348928 Code(s): I10 - ESSENTIAL (PRIMARY) HYPERTENSION Current Visit: Yes (3) DM type 2 (diabetes mellitus, type 2) SNOMED Code(s): 17909632 Code(s): E11.9 - TYPE 2 DIABETES MELLITUS WITHOUT COMPLICATIONS Current Visit: Yes (4) Rheumatoid arthritis SNOMED Code(s): 46885727 Code(s): M06.9 - RHEUMATOID ARTHRITIS, UNSPECIFIED Current Visit: Yes (5) Glaucoma SNOMED Code(s): 08699164 Code(s): H40.9 - UNSPECIFIED GLAUCOMA Current Visit: Yes Problem List Initiated/Reviewed/Updated: Yes My Orders Last 24 Hours: My Active Orders 11/07/20 12:44 Blood Glucose Check, Bedside [RC] TIDAC Dextrose 50% in Water 50 ml IV ASDIRECTED PRN Glucagon,Human Recombinant [GlucaGen] 1 mg IM ASDIRECTED PRN 11/07/20 17:00 Insulin Aspart [NovoLOG] See Protocol SUBCUT TIDAC 11/07/20 21:00 Latanoprost [Xalatan 0.005% Ophth Soln] 0 ml EYEBOTH BEDTIME 11/08/20 09:00 atorvaSTATin [Lipitor] 20 mg PO DAILY lisinopriL [Prinivil] 20 mg PO DAILY timoloL maleate [Timoptic 0.5% Ophth Soln] 0 ml EYELF DAILY 11/08/20 10:45 Magnesium Sulfate/Water [Magnesium Sulfate in Water Premix] 2 gm in 50 ml IV ONETIME Plan: This 70-year-old male admitted for left TKA, hospitalist service consulted for medical management of hypertension diabetes 1. Left TKA -Orders per orthopedic service -ASA for VTE prophylaxis 2. DM type II -Stable -Hold Metformin while hospitalized, may restart as normal once discharged -NovoLog sliding scale -Check blood sugars 3 times daily AC 3. Hypertension -Stable -Continue lisinopril VTE prophylaxis: ASA and SCDs along with early ambulation CODE STATUS: Full code
--- NOTE | 2020-11-10 14:22 | PCM.DCSUM1 ---
Discharge Summary - Hospital Course Free Text/Narrative:: document #[id number] - Discharge Data Discharge Date: 11/08/20 Discharge Disposition: Home, Self-Care 01 Condition: Good - Referral to Home Health Primary Care Physician: Israel Eng MD - Patient Summary/Data Operative Procedure(s) Performed: Left total knee replacement using [employer] knee system Consults: Consultations 11/07/20 10:59 Consult to Physician [CONS] Routine PT Evaluation and Treatment [CONS] Routine - Patient Instructions Diet: Heart Healthy Diet Activity: Apply Ice, Cough & Deep Breathe, Elevate Extremity, Full Weight Bearing, No Strenuous Activities Driving: Do Not Drive Showering/Bathing: May Shower Notify Provider of: Fever, Increased Pain, Swelling and Redness, Drainage Other/Special Instructions: Refer back to your KNEE NOTEBOOK and the orange patient instructions summary sheet that was included if you have additional questions. - Discharge Plan Prescriptions/Med Rec: Ibuprofen [Motrin] 800 mg PO Q8H PRN 1 Days #90 tablet PRN Reason: Pain traMADol [Ultram] 50 - 100 mg PO Q6H PRN #30 tablet PRN Reason: Pain Home Medications: Home Meds Fish Oil/Falkner-3 Fatty Acids [Fish Oil 1,000 MG] 1,000 mg PO BID 12/30/15 [History] Lisinopril 20 tab PO DAILY 12/30/15 [History] atorvaSTATin Calcium [Atorvastatin Calcium] 20 mg PO DAILY 12/30/15 [History] metFORMIN [Glucophage XR] 500 mg PO BEDTIME 12/30/15 [History] Brimonidine Tartrate [Brimonidine Tartrate 0.2% Ophth Soln] 1 drop EYELF BID 11/01/20 [History] Ca/D3/Mag Ox/Zinc/[employer]/Rohan/Bor [Calcium 600-D3 Plus Caplet] 1 tab PO DAILY 11/01/20 [History] Latanoprost/Pf [Latanoprost 0.005% Eye Drop] 1 drop EYEBOTH BEDTIME 11/01/20 [History] Multivitamin 1 tab PO DAILY 11/01/20 [History] Sildenafil [Viagra] 1 tab PO ASDIRECTED PRN 11/01/20 [History] timoloL maleate [Timoptic 0.5% Ophth Soln] 1 drop EYELF DAILY 11/01/20 [History] Acetaminophen [Tylenol Extra Strength] 1,000 mg PO Q6H PRN tablet 11/08/20 [Rx] Aspirin 325 mg PO DAILY tablet 11/08/20 [Rx] Docusate Sodium [Colace] 100 mg PO BID PRN cap 11/08/20 [Rx] Ibuprofen [Motrin] 800 mg PO Q8H PRN 1 Days #90 tablet 11/08/20 [Rx] polyethylene glycoL 3350 [MiraLAX] 17 gm PO DAILY packet 11/08/20 [Rx] traMADol [Ultram] 50 - 100 mg PO Q6H PRN #30 tablet 11/08/20 [Rx] Patient Handouts: Ibuprofen tablets and capsules, Tramadol tablets, Total Knee Replacement, Care After, Imri-ea-Onws, Total Knee Replacement, [id number] Referrals: Vonnie Denson, APPLICATIONS COORDINATOR [Nurse Practitioner] - 11/22/20 11:00 am (Please arrive 15mins early and bring ID, insurance info and own mask.) - Discharge Summary/Plan Comment DC Time >30 min.: No - Patient Data Vitals - Most Recent: Last Vital Signs Temp 36.4 C 11/08/20 07:20 Pulse 73 11/08/20 07:20 Resp 18 11/08/20 07:20 BP 113/59 L 11/08/20 08:50 Pulse Ox 94 L 11/08/20 07:20 Weight - Most Recent: 95.254 kg Med Orders - Current: Current Medications Discontinued Medications Acetaminophen (Tylenol Extra Strength) 1,000 mg PO Q6H PRN PRN Reason: Pain Al Hydroxide/Mg Hydroxide (Mag-Al Plus) 30 ml PO Q4H PRN PRN Reason: Indigestion Aspirin (Aspirin) 325 mg PO DAILY [facility] Aspirin (Aspirin) 325 mg PO DAILY [facility] Last Admin: 11/08/20 08:50 Dose: 325 mg Documented by: Atorvastatin Calcium (Lipitor) 20 mg PO DAILY [facility] Last Admin: 11/08/20 08:50 Dose: 20 mg Documented by: Bisacodyl (Dulcolax) 10 mg RECTAL DAILY PRN PRN Reason: Constipation Dextrose/Water (Dextrose 50% In Water) 50 ml IV ASDIRECTED PRN PRN Reason: Hypoglycemia Diphenhydramine HCl (Benadryl) 25 - 50 mg PO Q6H PRN PRN Reason: Itching Docusate Sodium (Colace) 100 mg PO BID PRN PRN Reason: Constipation Last Admin: 11/07/20 11:39 Dose: 100 mg Documented by: Ephedrine Sulfate (Ephedrine Sulfate) Confirm Administered Dose 50 mg .ROUTE .STK-MED ONE Stop: 11/07/20 08:57 Famotidine (Pepcid) 40 mg IVPUSH ONARRIVE [facility] Last Admin: 11/07/20 07:45 Dose: 40 mg Documented by: Famotidine (Pepcid) 40 mg PO DAILY [facility] Last Admin: 11/08/20 08:50 Dose: 40 mg Documented by: Fentanyl (Sublimaze) Confirm Administered Dose 100 mcg .ROUTE .STK-MED ONE Stop: 11/07/20 07:25 Glucagon (Glucagen) 1 mg IM ASDIRECTED PRN PRN Reason: Hypoglycemia Tranexamic Acid 1,000 mg/ (Sodium Chloride) 110 mls @ 600 mls/hr IV ASDIRECTED ONE Stop: 11/07/20 08:10 Last Admin: 11/07/20 11:37 Dose: Not Given Documented by: Ropivacaine 49.25 ml/Ketorolac Tromethamine 30 mg/Epinephrine HCl 0.5 mg/Clonidine HCl 80 mcg/ Sodium Chloride 75 mls @ 50 mls/sec INJECT ASDIRECTED [facility] Cefazolin Sodium/Dextrose 2 gm (/ Premix) 50 mls @ 100 mls/hr IV ONCALL [facility] Lactated Ringer's (Ringers, Lactated) 1,000 mls @ 100 mls/hr IV ASDIRECTED [facility] Last Admin: 11/08/20 04:04 Dose: 100 mls/hr Documented by: Cefazolin Sodium/Dextrose 2 gm (/ Premix) 50 mls @ 100 mls/hr IV Q8H [facility] Stop: 11/08/20 00:29 Last Admin: 11/07/20 23:31 Dose: 100 mls/hr Documented by: Bupivacaine HCl/Epinephrine Bitart (Sensorc Mpf 0.25%-Epi [id number]) Confirm Administered Dose 30 mls @ as directed .ROUTE .STK-MED ONE Stop: 11/07/20 13:38 Magnesium Sulfate (Magnesium Sulfate In Water Premix) 2 gm in 50 mls @ 50 mls/hr IV ONETIME ONE Stop: 11/08/20 11:44 Ibuprofen (Motrin) 800 mg PO Q8H PRN PRN Reason: Pain Insulin Aspart (Novolog) 0 unit SUBCUT TIDAC [facility]; Protocol Last Admin: 11/08/20 11:41 Dose: Not Given Documented by: Ketorolac Tromethamine (Toradol) 15 mg IVPUSH Q6H [facility] Stop: 11/08/20 05:00 Last Admin: 11/08/20 04:15 Dose: 15 mg Documented by: Latanoprost (Xalatan 0.005% Ophth Soln) 0 ml EYEBOTH BEDTIME [facility] Last Admin: 11/07/20 20:39 Dose: Not Given Documented by: Lidocaine (Xylocaine-Mpf 2%) Confirm Administered Dose 10 ml .ROUTE .STK-MED ONE Stop: 11/07/20 13:39 Lidocaine HCl (Xylocaine-Mpf 1%) Confirm Administered Dose 5 ml .ROUTE .STK-MED ONE Stop: 11/07/20 07:25 Lidocaine HCl (Xylocaine 2%) Confirm Administered Dose 100 mg .ROUTE .STK-MED ONE Stop: 11/07/20 13:39 Lisinopril (Prinivil) 20 mg PO DAILY [facility] Last Admin: 11/08/20 08:50 Dose: 20 mg Documented by: Midazolam HCl (Versed 1 Mg/Ml) Confirm Administered Dose 2 mg .ROUTE .STK-MED ONE Stop: 11/07/20 07:25 Morphine Sulfate (Morphine) 1 - 2 mg IVPUSH Q3H PRN PRN Reason: Pain Ondansetron HCl (Zofran) Confirm Administered Dose 4 mg .ROUTE .STK-MED ONE Stop: 11/07/20 07:24 Ondansetron HCl (Zofran) 4 mg IVPUSH Q6H PRN PRN Reason: Nausea/Vomiting Polyethylene Glycol (Miralax) 17 gm PO DAILY [facility] Last Admin: 11/08/20 08:51 Dose: 17 gm Documented by: Propofol (Diprivan 20 Ml) Confirm Administered Dose 400 mg .ROUTE .STK-MED ONE Stop: 11/07/20 07:24 Propofol (Diprivan 20 Ml) Confirm Administered Dose 400 mg .ROUTE .STK-MED ONE Stop: 11/07/20 09:44 Propofol (Diprivan 20 Ml) Confirm Administered Dose 200 mg .ROUTE .STK-MED ONE Stop: 11/07/20 13:45 Scopolamine (Transderm-Scop) 1.5 mg TRDERM ONARRIVE [facility] Last Admin: 11/07/20 07:30 Dose: 1.5 mg Documented by: Sodium Chloride (Saline Flush) 10 ml FLUSH ASDIRECTED PRN PRN Reason: Keep Vein Open Sodium Chloride (Saline Flush) 2.5 ml FLUSH ASDIRECTED PRN PRN Reason: Keep Vein Open Timolol Maleate (Timoptic 0.5% Ophth Soln) 0 ml EYELF DAILY [facility] Last Admin: 11/08/20 08:53 Dose: 1 drop Documented by: Tramadol HCl (Ultram) 50 - 100 mg PO Q6H PRN PRN Reason: Pain Last Admin: 11/08/20 08:53 Dose: 50 mg Documented by: Tranexamic Acid (Cyklokapron) Confirm Administered Dose 1,000 mg .ROUTE .STK-MED ONE Stop: 11/07/20 07:57
--- NOTE | 2020-11-11 08:37 | DISCH ---
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 OTHER MEDICAL DIAGNOSES: 1. Glaucoma. 2. Rheumatoid arthritis. 3. Hypertension. 4. Diabetes mellitus, type 2. DISCHARGE MEDICAL DIAGNOSES: 1. Left total knee replacement. 2. Glaucoma. 3. Rheumatoid arthritis. 4. Hypertension. 5. Diabetes mellitus, type 2. HISTORY: This 70-year-old male with complaints of left knee pain, who failed conservative treatment, underwent left total knee replacement on 11/07/[address] Shon Brownlee. No known surgical complications. Admitted to [facility] for postop care and physical therapy. HOSPITAL COURSE: Postoperatively, Robby did very well. Vital signs stable/afebrile. Tolerated food and fluids without nausea or vomiting. Pain was controlled with IV Toradol overnight, then switched to ibuprofen. Diligent use of ice via [employer] care machine. Hospitalist Services was consulted for medical management of his diabetes and hypertension. POD #1, surgical dressing is clean, dry, and intact. This was removed. Incision well approximated with mild swelling. Aquacel dressing was applied. Prophylactic antibiotic: Ancef 2 g IV q.8 hours x2 additional doses. DVT prophylaxis: Aspirin 325 mg daily initiated day of surgery, bilateral SCDs, early ambulation, and compression stockings. Blood work: Hemoglobin postoperatively 13.5. Physical therapy was initiated the day of surgery. Robby ambulated well with staff assist and walker in the hallway. POD #1, Robby felt ready to be discharged home with his . DISCHARGE MEDICATIONS: 1. Ibuprofen 800 mg q.8 hours. 2. Acetaminophen 500 mg 2 tablets q.6 hours p.r.n. 3. Aspirin 325 mg daily x3 months. 4. Atorvastatin 20 mg daily. 5. Brimonidine tartrate one drop left eye b.i.d. 6. Colace 100 mg b.i.d. p.r.n. 7. Fish oil/Fedscreek-3 fatty acid 1 g b.i.d. 8. Latanoprost 0.005% eye drop one drop both eyes at bedtime. 9. Lisinopril 20 mg daily. 10.Metformin 500 mg extended release p.o. at bedtime. 11.Multivitamin daily. 12.MiraLAX 17 g daily. 13.Sildenafil 100 mg p.r.n. 14.Timoptic 0.5 mg ophthalmic solution one drop left eye daily. 15.Tramadol 50 mg 1 to 2 tablets q.6 hours p.r.n. DISCHARGE ORDERS: Followup appointment scheduled for 2 weeks postoperatively with myself. Outpatient physical therapy scheduled to start day after discharge at [facility]. Discharged home with his . He did not need a prescription for a four- wheeled walker. He was informed if he had further questions or acute concerns, to contact the orthopedic clinic. SAIDA / MARISSA /[id number]
== END 2020-11-08 13:25 | disposition home or self-care (01) ==
LOC: UNDOADMIN 06:43 → MW.SDS 06:43 → MW.MS 06:43 → EDSTATUS 08:00 → MW.MS 15:41 → MW.SDS 11-08 13:25
PROVIDERS: ATTEND Orthopaedic Surgery
DX: M17.12 Unilateral primary osteoarthritis, left knee (principal); E11.9 Type 2 diabetes mellitus without complications; I10 Essential (primary) hypertension; M06.9 Rheumatoid arthritis, unspecified; H40.9 Unspecified glaucoma; E78.5 Hyperlipidemia, unspecified; E66.9 Obesity, unspecified; E78.00 Pure hypercholesterolemia, unspecified; Z79.899 Other long term (current) drug therapy; Z79.82 Long term (current) use of aspirin; Z98.890 Other specified postprocedural states; Z79.84 Long term (current) use of oral hypoglycemic drugs; Z88.8 Allergy status to other drugs, medicaments and biological substances
CPT/HCPCS: 27447; 36415; 73560; 80048; 82962; 83735; 85014; 85018; 85025; 86850; 86900; 86901; 97110; 97116; 97161; A9270; J0171; J0690; J0735; J1885; J2001; J2250; J2704; J2795; J3010; J3490; J7120; 01402; 64450; J2405

== ENCOUNTER 2023-10-18 11:20 | Observation (INO) | payer MEDICARE, OTHER ==
[2023-10-18] MEDS ORDERED: Sodium Chloride 0.9% 2.5 ML Syringe FLUSH PRN (11:22)
[2023-10-18] MEDS ORDERED: Sodium Chloride 0.9% 10 ML Syringe FLUSH PRN (11:22)
[2023-10-18] MEDS: Ketorolac 30 MG/ML SDV IVPUSH ONE ×2 (12:09→17:18)
[2023-10-18] MEDS: Sodium Chloride 0.9% 500 ML IV SCH ×2 (12:10→14:11)
[2023-10-18] MEDS: methylPREDNISolone Sodium Succinate 125 MG/2 ML SDV IVPUSH ONE ×2 (12:10→17:20)
[2023-10-18 12:33] LABS: BASOPHILS ABSOLUTE AUTO 0.02 K/uL (0.00-0.20); BASOPHILS PERCENT AUTO 0.2 % (0.0-1.0); HEMATOCRIT 40.7 % (42.0-52.0); HEMOGLOBIN 14.7 g/dL (14.0-18.0); IMMATURE GRAN ABSOLUTE AUTO 0.02 K/uL (0.00-0.05); IMMATURE GRAN PERCENT AUTO 0.2 % (0.0-0.4); LYMPHOCYTES ABSOLUTE AUTO 1.01 K/uL (1.00-4.80); LYMPHOCYTES PERCENT AUTO 9.3 % (24.0-44.0); MEAN CORPUSCULAR HEMOGLOBIN 31.7 pg (28.0-32.0); MEAN CORPUSCULAR HGB CONC 36.1 g/dL (32.0-36.0); MEAN CORPUSCULAR VOLUME 87.7 fL (83.0-99.0); MEAN PLATELET VOLUME 9.6 fL (9.4-12.4); MONOCYTES ABSOLUTE AUTO 0.77 K/uL (0.00-0.80); MONOCYTES PERCENT AUTO 7.1 % (0.0-8.0); NEUTROPHILS ABSOLUTE AUTO 9.08 K/uL (1.80-7.70); NEUTROPHILS PERCENT AUTO 83.2 % (41.0-71.0); PLATELET COUNT,PLT 138 K/uL (150-400); RED BLOOD CELL COUNT 4.64 M/uL (4.52-5.90)
[2023-10-18 13:06] LABS: A/G RATIO 0.9 (0.9-1.6); ALBUMIN 3.6 g/dL (3.4-5.0); BILIRUBIN TOTAL 3.6 mg/dL (0.2-1.0); CALCIUM 8.9 mg/dL (8.5-10.1); CARBON DIOXIDE,CO2 24.2 mmol/L (21.0-32.0); EST CRCL DRUG DOSING (CG) 65.9 mL/min; POTASSIUM,K 4.1 mmol/L (3.5-5.1); PROTEIN TOTAL,TP 7.4 g/dL (6.4-8.2)
[2023-10-18] MEDS ORDERED: Acetaminophen/Codeine 120-12 MG/5 ML Soln 5 ML UD Cup PO ONE (13:08)
[2023-10-18] MEDS ORDERED: Sodium Chloride 0.9% 1,000 ML IV ONE (13:14)
[2023-10-18] MEDS ORDERED: Ibuprofen 400 MG Tab PO PRN (14:14)
[2023-10-18] MEDS ORDERED: Enoxaparin 40 MG/0.4 ML Syringe SUBCUT SCH (14:15)
[2023-10-18] MEDS ORDERED: Glucagon,Human Recombinant 1 MG Vial IM PRN (14:16)
[2023-10-18] MEDS ORDERED: 50% Dextrose in Water 50 ML Syringe IVPUSH PRN (14:16)
[2023-10-18] MEDS ORDERED: Acetaminophen/Codeine 120-12 MG/5 ML Soln 5 ML UD Cup PO PRN (14:17)
[2023-10-18] MEDS ORDERED: Acetaminophen 325 MG Tab PO PRN (14:18)
[2023-10-18] MEDS ORDERED: Phenol 1.4% Oral Spray 177 ML Bottle MUCMEM PRN (15:16)
[2023-10-18] MEDS ORDERED: Benzocaine/Cetylpyridinium/Menthol Lozenge MUCMEM PRN (15:16)
[2023-10-18] MEDS: Sodium Chloride 0.9% 1,000 ML IV SCH (16:06)
[2023-10-18 17:00] LABS: APPEARANCE,URINE CLEAR; BILIRUBIN,URINE NEGATIVE (NEGATIVE); COLOR,URINE YELLOW; GLUCOSE,URINE NEGATIVE (NEGATIVE); KETONES,URINE NEGATIVE (NEGATIVE); LEUKOCYTE ESTERASE,URINE NEGATIVE (NEGATIVE); NITRITE,URINE NEGATIVE (NEGATIVE); OCCULT BLOOD,URINE TRACE-INTACT (NEGATIVE); PROTEIN,URINE NEGATIVE (NEGATIVE); UROBILINOGEN,URINE 0.2 EU/dL (<2.0)
[2023-10-18 17:16] LABS: BACTERIA,URINE RARE (NEGATIVE); EPITHELIAL CELLS,URINE RARE (NONE-FEW); RBC,URINE 0-1 (0-2/HPF); WBC,URINE 0-1 (0-5/HPF)
[2023-10-18 17:19] LABS: CREATININE,URINE RAND 34.7 mg/dL
[2023-10-18] MEDS: Insulin Aspart 100 Units/ML 3 ML Pen SUBCUT SCH (17:19)
[2023-10-18 18:44] LABS: CALCIUM 8.6 mg/dL (8.5-10.1); CARBON DIOXIDE,CO2 24.5 mmol/L (21.0-32.0); CREATININE 1.1 mg/dL (0.8-1.3); EST CRCL DRUG DOSING (CG) 59.91 mL/min; POTASSIUM,K 3.9 mmol/L (3.5-5.1)
[2023-10-18] MEDS ORDERED: LATANOPROST 0.005% EYEBOTH SCH (21:00)
[2023-10-18] MEDS: [UNRECOGNIZED DRUG - OTHER] PO SCH (21:15)
[2023-10-18] MEDS: NIRMATRELVIR PO SCH (21:15)
[2023-10-18] MEDS: RITONAVIR 100 MG PO SCH (21:15)
[2023-10-18] MEDS: BRIMONIDINE 0.2% EYELF SCH (21:17)
[2023-10-18 22:47] LABS: CALCIUM 8.8 mg/dL (8.5-10.1); CARBON DIOXIDE,CO2 22.2 mmol/L (21.0-32.0); CREATININE 1.2 mg/dL (0.8-1.3); EST CRCL DRUG DOSING (CG) 54.92 mL/min; POTASSIUM,K 3.7 mmol/L (3.5-5.1)
[2023-10-18] MEDS: Albuterol 0.083% 2.5 MG/3 ML Neb Soln NEB PRN (22:52)
[2023-10-19] MEDS: Sodium Chloride 0.9% 1,000 ML IV SCH (02:09)
[2023-10-19 02:33] LABS: CALCIUM 8.5 mg/dL (8.5-10.1); EST CRCL DRUG DOSING (CG) 65.9 mL/min; POTASSIUM,K 3.3 mmol/L (3.5-5.1)
[2023-10-19 05:47] LABS: BASOPHILS ABSOLUTE AUTO 0.02 K/uL (0.00-0.20); BASOPHILS PERCENT AUTO 0.3 % (0.0-1.0); HEMATOCRIT 39.6 % (42.0-52.0); HEMOGLOBIN 14.2 g/dL (14.0-18.0); IMMATURE GRAN ABSOLUTE AUTO 0.02 K/uL (0.00-0.05); IMMATURE GRAN PERCENT AUTO 0.3 % (0.0-0.4); LYMPHOCYTES ABSOLUTE AUTO 1.52 K/uL (1.00-4.80); LYMPHOCYTES PERCENT AUTO 20.9 % (24.0-44.0); MEAN CORPUSCULAR HGB CONC 35.9 g/dL (32.0-36.0); MEAN CORPUSCULAR VOLUME 89.2 fL (83.0-99.0); MEAN PLATELET VOLUME 9.5 fL (9.4-12.4); MONOCYTES ABSOLUTE AUTO 0.59 K/uL (0.00-0.80); MONOCYTES PERCENT AUTO 8.1 % (0.0-8.0); NEUTROPHILS ABSOLUTE AUTO 5.13 K/uL (1.80-7.70); NEUTROPHILS PERCENT AUTO 70.4 % (41.0-71.0); PLATELET COUNT,PLT 135 K/uL (150-400); RED BLOOD CELL COUNT 4.44 M/uL (4.52-5.90); WHITE BLOOD CELL COUNT,WBC 7.28 K/uL (3.9-11.3)
[2023-10-19 06:12] LABS: CALCIUM 9.1 mg/dL (8.5-10.1); CARBON DIOXIDE,CO2 27.2 mmol/L (21.0-32.0); CREATININE 1.1 mg/dL (0.8-1.3); EST CRCL DRUG DOSING (CG) 59.91 mL/min; POTASSIUM,K 3.7 mmol/L (3.5-5.1)
[2023-10-19] MEDS: Insulin Aspart 100 Units/ML 3 ML Pen SUBCUT SCH ×2 (06:49→11:54)
[2023-10-19] MEDS: [UNRECOGNIZED DRUG - OTHER] PO SCH (08:39)
[2023-10-19] MEDS: NIRMATRELVIR PO SCH (08:39)
[2023-10-19] MEDS: RITONAVIR 100 MG PO SCH (08:39)
[2023-10-19] MEDS: BRIMONIDINE 0.2% EYELF SCH (08:59)
[2023-10-19] MEDS ORDERED: Lisinopril 10 MG Tab PO SCH (09:00)
[2023-10-19] MEDS: Albuterol 0.083% 2.5 MG/3 ML Neb Soln NEB PRN (09:05)
[2023-10-19 11:59] VITALS: BP 137/79; PULSE 84
== END 2023-10-19 12:10 | disposition home or self-care (01) ==
LOC: MW.ED 11:20 → MW.MS 14:10
PROVIDERS: ADMIT Internal Medicine; ATTEND Internal Medicine
DX: U07.1 COVID-19 (principal); E87.1 Hypo-osmolality and hyponatremia; E86.1 Hypovolemia; I10 Essential (primary) hypertension; E11.9 Type 2 diabetes mellitus without complications; E78.00 Pure hypercholesterolemia, unspecified; E66.9 Obesity, unspecified; Z68.28 Body mass index [BMI] 28.0-28.9, adult; Z79.84 Long term (current) use of oral hypoglycemic drugs; Z79.899 Other long term (current) drug therapy
CPT/HCPCS: 36415; 71045; 80048; 80053; 81001; 82570; 82947; 83930; 83935; 84300; 85025; 87651; 96360; 96361; 96372; A9270; G0378; J1650; J1815; J3490; J7030; J7040; 99284; J1885; J2930; J7620-GY

== ENCOUNTER 2023-10-28 10:02 | Emergency (ER) | payer MEDICARE, OTHER ==
[2023-10-28 11:08] LABS: BASOPHILS ABSOLUTE AUTO 0.03 K/uL (0.00-0.20); BASOPHILS PERCENT AUTO 0.5 % (0.0-1.0); EOSINOPHILS ABSOLUTE AUTO 0.13 K/uL (0.00-0.45); EOSINOPHILS PERCENT AUTO 2.4 % (0.0-6.0); HEMATOCRIT 41.5 % (42.0-52.0); HEMOGLOBIN 14.4 g/dL (14.0-18.0); IMMATURE GRAN ABSOLUTE AUTO 0.03 K/uL (0.00-0.05); IMMATURE GRAN PERCENT AUTO 0.5 % (0.0-0.4); LYMPHOCYTES ABSOLUTE AUTO 1.26 K/uL (1.00-4.80); LYMPHOCYTES PERCENT AUTO 23.1 % (24.0-44.0); MEAN CORPUSCULAR HEMOGLOBIN 31.6 pg (28.0-32.0); MEAN CORPUSCULAR HGB CONC 34.7 g/dL (32.0-36.0); MEAN PLATELET VOLUME 9.9 fL (9.4-12.4); MONOCYTES ABSOLUTE AUTO 0.47 K/uL (0.00-0.80); MONOCYTES PERCENT AUTO 8.6 % (0.0-8.0); NEUTROPHILS ABSOLUTE AUTO 3.54 K/uL (1.80-7.70); NEUTROPHILS PERCENT AUTO 64.9 % (41.0-71.0); PLATELET COUNT,PLT 171 K/uL (150-400); RED BLOOD CELL COUNT 4.56 M/uL (4.52-5.90); WHITE BLOOD CELL COUNT,WBC 5.46 K/uL (3.9-11.3)
[2023-10-28 11:42] LABS: A/G RATIO 0.8 (0.9-1.6); ALBUMIN 3.2 g/dL (3.4-5.0); CALCIUM 9.7 mg/dL (8.5-10.1); CARBON DIOXIDE,CO2 27.6 mmol/L (21.0-32.0); CREATININE 1.1 mg/dL (0.8-1.3); EST CRCL DRUG DOSING (CG) 63.69 mL/min; POTASSIUM,K 4.7 mmol/L (3.5-5.1); PROTEIN TOTAL,TP 7.4 g/dL (6.4-8.2)
[2023-10-28 12:10] VITALS: BP 101/74; PULSE 83
== END 2023-10-28 12:09 | disposition home or self-care (01) ==
LOC: MW.ED 10:02
DX: U09.9 Post COVID-19 condition, unspecified (principal); R05.9 Cough, unspecified
CPT/HCPCS: 36415; 71046; 71046-26; 80053; 85025; 99282; 99283

== ENCOUNTER 2024-12-23 06:42 | Observation (INO) | payer MEDICARE, OTHER ==
[2024-12-23] MEDS ORDERED: Ropivacaine 49.25 ML, Ketorolac 30 MG, EPINEPHrine 0.5 MG, cloNIDine 80 MCG in Sodium C... INJECT SCH (07:00)
[2024-12-23] MEDS ORDERED: dexmedeTOMIDine HCl 200 MCG/2 ML SDV ONE (07:01)
[2024-12-23] MEDS ORDERED: Sodium Chloride 0.9% 20 ML ONE (07:02)
[2024-12-23] MEDS ORDERED: Ropivacaine 0.5% 5 MG/ML 30 ML SDV ONE (07:04)
[2024-12-23] MEDS ORDERED: Ondansetron 4 MG/2 ML SDV ONE (07:05)
[2024-12-23] MEDS ORDERED: propofoL 500 MG/50 ML 50 ML ONE ×2 (07:05→09:03)
[2024-12-23] MEDS ORDERED: fentaNYL 100 MCG/2 ML SDV ONE (07:07)
[2024-12-23] MEDS ORDERED: Midazolam 1 MG/ML 2 ML SDV ONE (07:08)
[2024-12-23] MEDS ORDERED: EPINEPHrine 1 MG/1 ML Amp ONE (07:15)
[2024-12-23] MEDS: Famotidine 20 MG/2 ML SDV IVPUSH SCH (07:20)
[2024-12-23] MEDS: Lactated Ringers 1,000 ML IV SCH (07:26)
[2024-12-23] MEDS ORDERED: Phenylephrine HCl In 0.9% NaCl 1 MG/10 ML Syringe IVPUSH PRN (07:52)
[2024-12-23] MEDS ORDERED: fentaNYL 50 MCG/ML SDV IVPUSH PRN (07:52)
[2024-12-23] MEDS ORDERED: Naloxone 0.4 MG/ML SDV IVPUSH PRN (07:52)
[2024-12-23] MEDS ORDERED: Ondansetron 4 MG/2 ML SDV IVPUSH PRN ×2 (07:52→10:54)
[2024-12-23] MEDS ORDERED: Metoclopramide 10 MG/2 ML SDV IVPUSH PRN (07:52)
[2024-12-23] MEDS ORDERED: HYDROmorphone 1 MG/ML Syringe IVPUSH PRN (07:52)
[2024-12-23] MEDS ORDERED: Morphine 2 MG/ML SYRINGE IVPUSH PRN (07:52)
[2024-12-23] MEDS ORDERED: Albuterol 0.083% 2.5 MG/3 ML Neb Soln NEB PRN (07:52)
[2024-12-23] MEDS ORDERED: Tranexamic Acid in NACL,ISO-OS 1,000 MG/100 ML Bag IV ONE (08:00)
[2024-12-23] MEDS ORDERED: Tranexamic Acid 1,000 MG/10 ML Vial ONE (08:08)
[2024-12-23] MEDS ORDERED: ePHEDrine 50 MG/ML SDV ONE (08:20)
[2024-12-23] MEDS ORDERED: Phenylephrine HCl In 0.9% NaCl 1 MG/10 ML Syringe ONE (10:03)
[2024-12-23] MEDS ORDERED: Sodium Chloride 0.9% 2.5 ML Syringe FLUSH PRN (10:54)
[2024-12-23] MEDS ORDERED: Sodium Chloride 0.9% 10 ML Syringe FLUSH PRN (10:54)
[2024-12-23] MEDS ORDERED: oxyCODONE 5 MG Tab PO PRN ×2 (10:54)
[2024-12-23] MEDS ORDERED: traMADol 50 MG Tab PO PRN ×2 (10:54)
[2024-12-23] MEDS ORDERED: diphenhydrAMINE 25 MG Cap PO PRN (10:54)
[2024-12-23] MEDS ORDERED: 50% Dextrose in Water 50 ML Syringe IVPUSH PRN (12:19)
[2024-12-23] MEDS ORDERED: Glucagon,Human Recombinant 1 MG Vial IM PRN (12:19)
[2024-12-23 13:23] LABS: CALCIUM 8.6 mg/dL (8.5-10.1); CARBON DIOXIDE,CO2 26.4 mmol/L (21.0-32.0); EST CRCL DRUG DOSING (CG) 64.89 mL/min; MAGNESIUM 1.7 mg/dL (1.8-2.4); POTASSIUM,K 4.5 mmol/L (3.5-5.1)
[2024-12-23] MEDS: Ketorolac 30 MG/ML SDV IVPUSH SCH (13:58)
[2024-12-23] MEDS: Tranexamic Acid in NACL,ISO-OS 1,000 MG in Premix Bag 1 BAG IV ONE (13:59)
[2024-12-23] MEDS: Clindamycin Phosphate in D5W 50 ML IV ONE (13:59)
[2024-12-23] MEDS: Famotidine 20 MG/2 ML SDV ONE (14:00)
[2024-12-23] MEDS: Acetaminophen 325 MG Tab PO SCH (14:53)
[2024-12-23] MEDS: Magnesium Sulfate/Water Premix 2 GM in Premix Bag 1 BAG IV ONE (14:54)
[2024-12-23] MEDS: ceFAZolin 2 GM in Sodium Chloride 0.9% 50 ML IV SCH ×2 (16:31→16:38)
[2024-12-23] MEDS: Insulin Aspart 100 Units/ML 3 ML Pen SUBCUT SCH (17:06)
[2024-12-23] MEDS: Aspirin 325 MG Tab PO SCH (19:02)
[2024-12-23] MEDS: Brimonidine 0.2% Ophth Soln 5 ML Bottle EYELF SCH (21:42)
[2024-12-23] MEDS: Latanoprost 0.005% Ophth Soln 2.5 ML Bottle EYEBOTH SCH (21:43)
[2024-12-23] MEDS: Docusate Sodium 100 MG Cap PO SCH (21:44)
[2024-12-23] MEDS: Fish Oil/Omega-3 Fatty Acids 1 Gm Cap PO SCH (21:44)
[2024-12-24 06:38] LABS: HEMATOCRIT 33.5 % (42.0-52.0); HEMOGLOBIN 11.7 g/dL (14.0-18.0)
[2024-12-24 07:05] LABS: CALCIUM 8.1 mg/dL (8.5-10.1); CARBON DIOXIDE,CO2 28.7 mmol/L (21.0-32.0); CREATININE 1.3 mg/dL (0.8-1.3); EST CRCL DRUG DOSING (CG) 32.72 mL/min; MAGNESIUM 1.9 mg/dL (1.8-2.4); POTASSIUM,K 4.7 mmol/L (3.5-5.1)
[2024-12-24] MEDS: Calcium Carbonate/Vitamin D3 1500 MG-400 Units Tab PO SCH (09:06)
[2024-12-24] MEDS: atorvaSTATin 20 MG Tab PO SCH (09:07)
[2024-12-24] MEDS: Acidophilus with Citrus Pectin/L.acidophilus Tab PO SCH (09:07)
[2024-12-24] MEDS: Lisinopril 10 MG Tab PO SCH (09:07)
[2024-12-24] MEDS: Famotidine 20 MG Tab PO SCH (09:07)
[2024-12-24] MEDS: Polyethylene Glycol 3350 Powder 17 GM Packet PO SCH (09:07)
[2024-12-24] MEDS: Timolol Maleate 0.5% Ophth Soln 5 ML Bottle EYELF SCH (09:09)
[2024-12-24 11:21] VITALS: BP 148/85; PULSE 65
== END 2024-12-24 12:30 | disposition home or self-care (01) ==
LOC: MW.SDS 06:42 → MW.MS 12:14
PROVIDERS: ADMIT Orthopaedic Surgery; ATTEND Orthopaedic Surgery
DX: M17.11 Unilateral primary osteoarthritis, right knee (principal); I10 Essential (primary) hypertension; E11.9 Type 2 diabetes mellitus without complications; E78.00 Pure hypercholesterolemia, unspecified; Z79.84 Long term (current) use of oral hypoglycemic drugs; Z79.899 Other long term (current) drug therapy
CPT/HCPCS: 27447; 36415; 64447; 73560; 80048; 82947; 83735; 85014; 85018; 86850; 86900; 86901; 96365; 96375; 96376; 97162; 97530; A9270; C1776; G0378; J0171; J0690; J0735; J0736; J1815; J1885; J2250; J2371; J2704; J2795; J3010; J3475; J3490; J7120; J2405